=== PATIENT | female | born 1945 | race African-American/Black ===

== ENCOUNTER 2017-10-28 08:00 | Outpatient (CLI) | payer MEDICARE, OTHER ==
[2017-10-28 19:36] LABS: BASOPHILS % (AUTO) 0.8 %; EOSINOPHILS % (AUTO) 0.6 %; HGB - HEMOGLOBIN 12.8 g/dL (12.0-16.0); LYMPHOCYTES # (AUTO) 1.2 10^3/uL (1.5-3.5); LYMPHOCYTES % (AUTO) 26.9 %; MEAN CORPUSCULAR HEMOGLOBIN 29.2 pg (27.0-31.0); MEAN CORPUSCULAR HGB CONC 32.5 g/dL (32.0-36.0); MEAN CORPUSCULAR VOLUME 89.9 fL (81.0-99.0); MONOCYTES # (AUTO) 0.4 10^3/uL (0.0-1.0); MONOCYTES % (AUTO) 8.9 %; NEUTROPHILS # (AUTO) 2.9 10^3/uL (1.5-6.6); NEUTROPHILS % (AUTO) 62.8 %; PLT - PLATELET COUNT 156 10^3/uL (130-450); RED BLOOD COUNT 4.38 10^6/uL (4.20-5.40); WHITE BLOOD COUNT 4.6 x10^3/uL (4.8-10.8)
[2017-10-28 19:38] LABS: BUN - BLOOD UREA NITROGEN 19 mg/dL (6-20); CALCIUM 9.3 mg/dL (8.5-10.3); CARBON DIOXIDE - CO2 27 mmol/L (21-32); CHLORIDE 103 mmol/L (101-111); CREATININE 0.9 mg/dL (0.4-1.0); GFR - MDRD 75 (>89); GLUCOSE 87 mg/dL (70-100); SODIUM 137 mmol/L (135-145)
== END 2017-10-28 08:01 | disposition home or self-care (01) ==
LOC: LAB.WCP 08:00
PROVIDERS: ATTEND Physician Assistant Medical
DX: R42 Dizziness and giddiness (principal)
CPT/HCPCS: 36415; 80048; 84443; 85025

== ENCOUNTER 2017-11-21 13:29 | Emergency (ER) | payer MEDICARE ==
--- NOTE | 2017-11-21 14:06 | ED Physician Documentation ---
PD HPI HEAD INJURY - Stated complaint Stated Complaint: BUMP ON HEAD - Chief complaint Chief Complaint: Neuro - History obtained from History obtained from: Patient, Family - History of Present Illness Mechanism of head injury: Other (unknown) Pain level max: 0 Pain level now: 0 - Additional information Additional information: [facility] and noted to have a hematoma to the forehead at shift change. family states more altered than usual today. Review of Systems Unable to obtain: Dementia GI: denies: Vomiting PD PAST MEDICAL HISTORY - Past Medical History Cardiovascular: Hypertension, High cholesterol Neuro: Dementia GI: Other Psych: Anxiety Musculoskeletal: Gout - Past Surgical History Past Surgical History: No - Present Medications Home Medications: Ambulatory Orders Medication Instructions Recorded Confirmed hydroCHLOROthiazide [Hydrodiuril] 12.5 mg PO DAILY 08/07/16 08/07/16 - Allergies Allergies/Adverse Reactions: Allergies Allergy/AdvReac Type Severity Reaction Status Date / Time Sulfa (Sulfonamide Allergy Unknown Verified 08/07/16 06:54 Antibiotics) - Social History Does the pt smoke?: No Smoking Status: Never smoker Does the pt drink ETOH?: No Does the pt have substance abuse?: No - Immunizations Immunizations are current?: Yes - POLST Patient has POLST: No PD ED PE NORMAL - Vitals Vital signs reviewed: Yes - General General: Other (alert) - HEENT HEENT: PERRL, Moist mucous membranes, Other (small hematoma to L forehead. no palpable skull fracture) - Neck Neck: Supple, no meningeal sign, No bony TTP - Cardiac Cardiac: RRR, Strong equal pulses - Respiratory Respiratory: No respiratory distress, Clear bilaterally - Abdomen Abdomen: Soft, Non tender, Non distended - Back Back: No spinal TTP - Derm Derm: Warm and dry, No rash - Extremities Extremities: No deformity, No tenderness to palpate - Neuro Neuro: Other (alert) Eye Opening: Spontaneous Motor: Obeys Commands Verbal: Confused GCS Score: 14 Results - Vitals Vitals: Vital Signs - 24 hr 11/21/17 13:33 Temperature 36.7 C Heart Rate 70 Respiratory 18 Rate Blood Pressure 148/87 H O2 Saturation 100 Oxygen O2 Source Room air - Labs Labs: Laboratory Tests 11/21/17 11/21/17 11/21/17 14:15 14:15 15:03 WBC 3.1 L RBC 4.58 Hgb 13.4 Hct 41.4 MCV 90.3 MCH 29.3 MCHC 32.5 RDW 14.1 Plt Count 163 MPV 8.3 Neut # 1.6 Lymph # 1.2 L [place] # 0.2 Eos # 0.0 Baso # 0.0 Absolute Nucleated RBC 0.00 Nucleated RBC % 0.1 Sodium 138 Potassium 4.0 Chloride 99 L Carbon Dioxide 27 Anion Gap 12.0 BUN 16 Creatinine 0.9 Estimated GFR (MDRD) 75 L Glucose 91 Calcium 9.8 Total Bilirubin 0.5 AST 27 ALT 30 Alkaline Phosphatase 76 Total Protein 7.0 Albumin 4.0 Globulin 3.0 Albumin/Globulin Ratio 1.3 Lipase 22 Urine Color YELLOW Urine Clarity CLEAR Urine pH 6.0 Ur Specific [place] 1.010 Urine Protein NEGATIVE Urine Glucose (UA) NEGATIVE Urine Ketones NEGATIVE Urine Occult Blood SMALL H Urine Nitrite NEGATIVE Urine Bilirubin NEGATIVE Urine Urobilinogen 0.2 (NORMAL) Ur Leukocyte Esterase NEGATIVE Urine RBC 0-5 Urine WBC 0-3 Ur Squamous Epith Cells FEW Squamous Urine Bacteria Rare Ur Microscopic Review INDICATED Urine Culture Comments NOT INDICATED - Rads (name of study) head CT Radiology: Prelim report reviewed, EMP read contemporaneously, See rad report ( No acute intracranial abnormality) PD MEDICAL DECISION MAKING - ED course Complexity details: reviewed results, re-evaluated patient, considered differential, d/w patient, d/w family ED course: Patient is a 72-year-old female with Alzheimer's dementia who was found to have a hematoma on the forehead today. Unclear etiology. She does not recall what happened. No acute findings on head CT. No acute findings on laboratory testing or urinalysis. We will have her follow-up with her doctor for further evaluation and care. Normal neurological examination here. She was recently placed on meclizine for vertigo, will change this to [id number] rather than as needed as she cannot ask for the medications. We will see if this helps her. Patient and family counseled regarding signs and symptoms for which I believe and urgent re-evaluation would be necessary. Family with good understanding of and agreement to plan and is comfortable going home at this time This document was made in part using voice recognition software. While efforts are made to proofread this document, sound alike and grammatical errors may occur. Departure - Departure Disposition: 01 Home, Self Care Clinical Impression: Traumatic hematoma of forehead Qualifiers: Encounter type: initial encounter Qualified Code(s): S00.83XA - Contusion of other part of head, initial encounter Condition: Good Instructions: ED Hematoma Follow-Up: Carrie Anderson PA-C [Primary Care Provider] - Within 3 Days Comments: Please change her meclizine to 25 mg by mouth every 8 hours for [address] and laboratory testing is normal today. Return if she worsens.
[2017-11-21 14:24] LABS: BASOPHILS % (AUTO) 0.8 %; EOSINOPHILS % (AUTO) 0.3 %; HGB - HEMOGLOBIN 13.4 g/dL (12.0-16.0); LYMPHOCYTES # (AUTO) 1.2 10^3/uL (1.5-3.5); LYMPHOCYTES % (AUTO) 39.3 %; MEAN CORPUSCULAR HEMOGLOBIN 29.3 pg (27.0-31.0); MEAN CORPUSCULAR HGB CONC 32.5 g/dL (32.0-36.0); MEAN CORPUSCULAR VOLUME 90.3 fL (81.0-99.0); MEAN PLATELET VOLUME 8.3 fL (7.9-10.8); MONOCYTES # (AUTO) 0.2 10^3/uL (0.0-1.0); MONOCYTES % (AUTO) 7.4 %; NEUTROPHILS # (AUTO) 1.6 10^3/uL (1.5-6.6); NEUTROPHILS % (AUTO) 52.2 %; PLT - PLATELET COUNT 163 10^3/uL (130-450); RED BLOOD COUNT 4.58 10^6/uL (4.20-5.40); RED CELL DISTRIBUTION WIDTH 14.1 % (12.0-15.0); WHITE BLOOD COUNT 3.1 x10^3/uL (4.8-10.8)
--- NOTE | 2017-11-21 14:30 | CT Report ---
EXAM: CT HEAD EXAM DATE: 11/21/2017 02:08 PM. CLINICAL HISTORY: Head injury post fall. COMPARISON: None. TECHNIQUE: Multiaxial CT images were obtained from the foramen magnum to the vertex. Reformats: Coron al. IV contrast: None. In accordance with CT protocol optimization, one or more of the following dose reduction techniques w ere utilized for this exam: automated exposure control, adjustment of mA and/or KV based on patient s ize, or use of iterative reconstructive technique. FINDINGS: Parenchyma: No intraparenchymal hemorrhage. No evidence of mass, midline shift, or CT findings of inf arction. Yang-white differentiation is distinct. Mild periventricular hypoattenuation seen. Extraaxial Spaces: Mild atrophy present. No subdural or epidural collections identified. Ventricles: Normal in size and position. Sinuses and Orbits: Fluid is seen in the left sphenoid sinus. Remaining sinuses and mastoid air cells are unremarkable. Bones: No evidence of fracture or calvarial defect. Other: There is a left frontal scalp hematoma. IMPRESSION: 1. Mild senescent changes without CT evidence of acute intracranial disease. 2. Left sphenoid sinusitis. 3. Left frontal scalp hematoma. [facility] Referring Provider Line: [phone] SITE ID: [id number]
[2017-11-21 14:37] LABS: ALBUMIN/GLOBULIN RATIO 1.3 (1.0-2.2); BILIRUBIN,TOTAL 0.5 mg/dL (0.2-1.0); CALCIUM 9.8 mg/dL (8.5-10.3); CREATININE 0.9 mg/dL (0.4-1.0)
[2017-11-21 15:17] LABS: BILIRUBIN,URINE NEGATIVE (NEGATIVE); GLUCOSE, URINE (UA) NEGATIVE (NEGATIVE); KETONES,URINE (UA) NEGATIVE (NEGATIVE); LEUKOCYTE ESTERASE, URINE NEGATIVE (NEGATIVE); NITRITE,URINE NEGATIVE (NEGATIVE); OCCULT BLOOD,URINE SMALL (NEGATIVE); PROTEIN,URINE NEGATIVE (NEGATIVE); UROBILINOGEN,URINE 0.2 (NORMAL) E.U./dL (NORMAL)
[2017-11-21 15:35] LABS: CLARITY,URINE CLEAR (CLEAR)
[2017-11-21 16:08] LABS: BACTERIA,URINE Rare /HPF (None Seen); RBC,URINE 0-5 /HPF (0-5); SQUAMOUS EPITHELIAL CELL,UR FEW Squamous (<= Few)
[2017-11-21 16:28] VITALS: BP 143/96
== END 2017-11-21 16:34 | disposition home or self-care (01) ==
LOC: ED 13:29
DX: S00.83XA Contusion of other part of head, initial encounter (principal); X58.XXXA Exposure to other specified factors, initial encounter; G30.9 Alzheimer's disease, unspecified; F02.80 Dementia in other diseases classified elsewhere, unspecified severity, without behavioral disturbance, psychotic disturbance, mood disturbance, and anxiety; I10 Essential (primary) hypertension; E78.00 Pure hypercholesterolemia, unspecified
CPT/HCPCS: 36415; 51701; 70450; 80053; 81001; 81003; 83690; 85025; 87086; 99284

== ENCOUNTER 2018-06-26 15:53 | Emergency (ER) | payer MEDICARE, MEDICAID ==
--- NOTE | 2018-06-26 16:43 | ED Physician Documentation ---
PD HPI ABD PAIN - Stated complaint Stated Complaint: ABD PX - Chief complaint Chief Complaint: Abd Pain - History obtained from History obtained from: Patient, Family - History of Present Illness Timing - onset: Today Timing - duration: Seconds Timing - details: Abrupt onset, Now resolved Quality: Cramping, Sharp, Pain Location: All over / everywhere Improved by: Laying still Associated symptoms: Constipation. No: Fever, Nausea, Vomiting, Hematemesis, Diarrhea Similar symptoms before: Has not had sx before Recently seen: Not recently seen - Additional information Additional information: 72-year-old female with advanced dementia and prior history of constipation has had episodic abdominal pain today noticed by her daughter at a visit. The daughter is able to describe the patient's face being scrunched up and pain and appearing to be in pain for about 30 seconds on 2 separate episodes today. The pain appeared to be significant and the patient is brought to the hospital for evaluation. The daughter states that she is on a bowel program usually gets some milk of magnesia. The daughter is uncertain when she had her last dose of this or whether she had adequate bowel movement but she has been told that she had bowel movement today. The patient is unable to give any specific history herself. Review of Systems Unable to obtain: Dementia Constitutional: denies: Fever Nose: denies: Congestion Respiratory: denies: Dyspnea, Cough, Wheezing GI: denies: Vomiting, Diarrhea Skin: denies: Rash Musculoskeletal: denies: Neck pain, Back pain, Extremity pain PD PAST MEDICAL HISTORY - Past Medical History Cardiovascular: Hypertension GI: Other Psych: Anxiety Musculoskeletal: Gout - Past Surgical History Past Surgical History: No - Present Medications Home Medications: Ambulatory Orders Medication Instructions Recorded Confirmed hydroCHLOROthiazide [Hydrodiuril] 12.5 mg PO DAILY 08/07/16 08/07/16 - Allergies Allergies/Adverse Reactions: Allergies Allergy/AdvReac Type Severity Reaction Status Date / Time Sulfa (Sulfonamide Allergy Unknown Verified 06/26/18 16:02 Antibiotics) - Social History Does the pt smoke?: No Smoking Status: Never smoker Does the pt drink ETOH?: No Does the pt have substance abuse?: No - Immunizations Immunizations are current?: Yes - POLST Patient has POLST: No PD ED PE NORMAL - Vitals Vital signs reviewed: Yes (hypertensive ) - General General: No acute distress, Well developed/nourished - HEENT HEENT: Atraumatic, PERRL, EOMI - Neck Neck: Supple, no meningeal sign - Cardiac Cardiac: RRR, No murmur - Respiratory Respiratory: No respiratory distress, Clear bilaterally - Abdomen Abdomen: Soft, Other (The abdomen is firm and non-tender) - Back Back: No CVA TTP, No spinal TTP - Derm Derm: Normal color, Warm and dry, No rash - Extremities Extremities: No deformity, No edema - Neuro Neuro: Alert and oriented X 3, spiral tube winder 2-12 intact, No motor deficit, No sensory deficit, Normal speech Eye Opening: Spontaneous Motor: Obeys Commands Verbal: Oriented GCS Score: 15 - Psych Psych: Normal mood, Normal affect Results - Vitals Vitals: Vital Signs - 24 hr 06/26/18 06/26/18 15:58 18:04 Temperature 36.6 C Heart Rate 93 70 Respiratory 16 12 Rate Blood Pressure 147/83 H 134/87 H O2 Saturation 99 100 Oxygen O2 Source Room air - Rads (name of study) 1 view abdomen Radiology: Prelim report reviewed (Impression: Moderate stool in the colon.), EMP read indepedently, See rad report PD MEDICAL DECISION MAKING - ED course Complexity details: reviewed results, re-evaluated patient, considered differential, d/w patient, d/w family ED course: 72-year-old female with advanced dementia and a history of constipation has had intermittent episodes of severe abdominal pain which lasted about 30 seconds. Her history is consistent with constipation being the reason for her pain. On my examination she does appear full and is nontender. X-ray examination of the abdomen demonstrates significant stool load. She is diagnosed with constipation. She does have a bowel program that she follows [facility] and I have asked them to give her an additional dose of milk of magnesia today. - Sepsis Event Vital Signs: Vital Signs - 24 hr 06/26/18 06/26/18 15:58 18:04 Temperature 36.6 C Heart Rate 93 70 Respiratory 16 12 Rate Blood Pressure 147/83 H 134/87 H O2 Saturation 99 100 Oxygen O2 Source Room air Departure - Departure Disposition: 01 Home, Self Care Clinical Impression: Constipation Qualifiers: Constipation type: unspecified constipation type Qualified Code(s): K59.00 - Constipation, unspecified Instructions: ED Constipation Follow-Up: Carrie Anderson PA-C [Primary Care Provider] - Comments: Today it appears these intense short episodes of pain that you are having are related to constipation. When you return home take a dose of milk of magnesia. If you do not have results within 6 hours take a second dose. Discharge Date/Time: 06/26/18 18:04
[2018-06-26 18:04] VITALS: BP 134/87
--- NOTE | 2018-06-26 18:04 | XRAY Report ---
Reason: intermittant pain fullness Procedure Date: 06/26/2018 Accession Number: [id number] / [id number] Procedure: XR - Abdomen 1 View X-Ray CPT Code: 95999 FULL RESULT: EXAM: ABDOMEN RADIOGRAPHY EXAM DATE: 06/26/2018 05:47 PM. CLINICAL HISTORY: Intermittent pain fullness. COMPARISON: None. TECHNIQUE: 1 view. FINDINGS: Bowel Gas Pattern: Nonobstructed bowel gas pattern. Moderate stool in the colon. Other: Diffuse osteopenia. IMPRESSION: Moderate stool in the colon. [facility]
== END 2018-06-26 18:04 | disposition home or self-care (01) ==
LOC: ED 15:53
DX: K59.00 Constipation, unspecified (principal); I10 Essential (primary) hypertension; F03.90 Unspecified dementia, unspecified severity, without behavioral disturbance, psychotic disturbance, mood disturbance, and anxiety
CPT/HCPCS: 74018; 99282; 99283

== ENCOUNTER 2018-12-21 12:00 | Outpatient (CLI) | payer MEDICARE, MEDICAID | END 2018-12-21 12:01 | disposition critical access hospital (66) | LOC: EMS 12:00 | PROVIDERS: ATTEND Surgery | DX: M25.551 Pain in right hip (principal); W19.XXXA Unspecified fall, initial encounter | CPT/HCPCS: A0425; A0429 ==

== ENCOUNTER 2018-12-21 12:18 | Inpatient (IN) | payer MEDICARE, MEDICAID ==
--- NOTE | 2018-12-21 13:07 | ED Physician Documentation ---
PD HPI LOWER EXT INJURY - Stated complaint Stated Complaint: GLF - Chief complaint Chief Complaint: Ext Problem - History obtained from History obtained from: Patient - History of Present Illness PD HPI LOW EXT INJURY LOCATION: Right, Hip, Other (lower back) Type of injury: Fall (She was walking and tripped on another resident's foot and fell forward into the side.) Where injury occurred: Other ([facility]) Timing - onset: Today Timing - duration: Days Timing - details: Abrupt onset, Still present Worsened by: Moving, Other (standing/weight bearing) Associated symptoms: No: Weakness, Numbness Contributing factors: No: Anticoagulated Similar symptoms before: Has not had sx before Recently seen: Not recently seen Review of Systems Unable to obtain: Dementia, Other (info from family) Constitutional: denies: Fever Respiratory: denies: Cough Neurologic: reports: Other (dementia). denies: Focal weakness, Headache PD PAST MEDICAL HISTORY - Past Medical History Cardiovascular: Hypertension Respiratory: None Neuro: Dementia Endocrine/Autoimmune: None GI: Other Psych: Anxiety Musculoskeletal: Gout - Past Surgical History Past Surgical History: No - Present Medications Home Medications: Ambulatory Orders Medication Instructions Recorded Confirmed hydroCHLOROthiazide [Hydrodiuril] 12.5 mg PO DAILY 08/07/16 12/21/18 Acetaminophen [Tylenol] 650 mg PO PRN PRN 12/21/18 12/21/18 Aspirin [Aspirin EC] 81 mg PO DAILY 12/21/18 12/21/18 Atorvastatin Calcium 40 mg PO DAILY 12/21/18 12/21/18 Escitalopram [Lexapro] 20 mg PO DAILY 12/21/18 12/21/18 Latanoprost/Pf [Latanoprost 0.005% 1 drops EACHEYE QPM 12/21/18 12/21/18 Eye Drop] Melatonin/Pyridoxine [Melatonin 5 5 mg PO DAILY 12/21/18 12/21/18 mg Tablet] Polyethylene Glycol 1450 8.5 gm PO DAILY 12/21/18 12/21/18 QUEtiapine [SEROquel] 25 mg PO QPM 12/21/18 12/21/18 - Allergies Allergies/Adverse Reactions: Allergies Allergy/AdvReac Type Severity Reaction Status Date / Time Sulfa (Sulfonamide Allergy Unknown Verified 06/26/18 16:02 Antibiotics) - Living Situation Living Situation: reports: Other Living Arrangement: reports: long-term (Her daughter says the patient is ambulatory though not very strong and does not get up a lot but does get up for meals and to the bathroom etc.) - Social History Does the pt smoke?: No Smoking Status: Never smoker Does the pt drink ETOH?: No Does the pt have substance abuse?: No - Family History Family history: reports: Non contributory - Immunizations Immunizations are current?: Yes - POLST Patient has POLST: No PD ED PE NORMAL - Vitals Vital signs reviewed: Yes - General General: Well developed/nourished. No: Alert and oriented X 3 (alert and conversant but very poor memory. ) - HEENT HEENT: Atraumatic - Neck Neck: Supple, no meningeal sign, No bony TTP, No adenopathy - Cardiac Cardiac: RRR, No murmur - Respiratory Respiratory: Clear bilaterally, Other (no chestwall tenderness) - Abdomen Abdomen: Soft, Non tender - Back Back: Other (mild tenderness lower lumbar area without obvious deformity. ) - Derm Derm: Normal color, Warm and dry - Extremities Extremities: No tenderness to palpate, Other (Seems to guard ROM of the right hip. Pain with impaction and rotational attempts. ) - Neuro Neuro: No motor deficit. No: Normal speech (minimal response to questions but i s able to answer. ) Results - Vitals Vitals: Vital Signs - 24 hr 12/21/18 12:25 Temperature 36.6 C Heart Rate 66 Respiratory 18 Rate Blood Pressure 146/92 H O2 Saturation 99 Oxygen O2 Source Room air - Labs Labs: Laboratory Tests 12/21/18 12/21/18 12/21/18 15:37 15:37 15:37 WBC 6.7 RBC 4.41 Hgb 13.0 Hct 39.2 MCV 88.8 MCH 29.5 MCHC 33.2 RDW 14.5 Plt Count 161 MPV 8.7 Neut # (Auto) 4.5 Lymph # (Auto) 1.7 [place] # (Auto) 0.4 Eos # (Auto) 0.1 Baso # (Auto) 0.0 Absolute Nucleated RBC 0.00 Nucleated RBC % 0.0 PT 12.7 H INR 1.1 APTT 29.4 Sodium 135 Potassium 3.7 Chloride 101 Carbon Dioxide 25 Anion Gap 9.0 BUN 14 Creatinine 0.7 Estimated GFR (MDRD) 99 Glucose 94 Calcium 9.1 Total Bilirubin 0.7 AST 26 ALT 29 Alkaline Phosphatase 52 Total Protein 6.7 Albumin 3.6 Globulin 3.1 Albumin/Globulin Ratio 1.2 Lipase 26 - Rads (name of study) lumbar CT Radiology: Prelim report reviewed (no fractures. ) pelvic CT Radiology: Prelim report reviewed (right nondisplaced femoral neck fracture. ), See rad report PD MEDICAL DECISION MAKING - ED course Complexity details: reviewed results (There is a nondisplaced femoral neck fracture on the right. No fractures of the lumbar or pelvis.), considered differential (She does have guarding of range of motion of the right hip. She is also tender somewhat in the lateral aspect of the hip and the low back. Given her dementia and poor verbalization, tired to tell for sure on location of injury. I did a CT of the lumbar and pelvis to look for associated injuries and this will also incorporate the hip.), d/w patient, d/w family, d/w business development consultant (Dr. Aguilar, who will likely do surgery tomorrow morning, since the patient had eaten today (last ate breakfast 8 am per daughter, so 8 hours ago). ) Departure - Departure Disposition: 66 [facility] DC/Xfer Clinical Impression: Fall from slip, trip, or stumble Qualifiers: Encounter type: initial encounter Qualified Code(s): W01.0XXA - Fall on same level from slipping, tripping and stumbling without subsequent striking against object, initial encounter Femoral neck fracture Qualifiers: Encounter type: initial encounter Fracture type: closed Laterality: right Qualified Code(s): S72.001A - Fracture of unspecified part of neck of right femur, initial encounter for closed fracture Condition: Stable Record reviewed to determine appropriate education?: Yes
[2018-12-21] MEDS ORDERED: ACETAMINOPHEN 325 MG TABLET PO STA (13:27)
--- NOTE | 2018-12-21 14:21 | CT Report ---
Reason: fall with pain low back and right hip/pelvis Procedure Date: 12/21/2018 Accession Number: [id number] / [id number] Procedure: CT - PELVIS WO CPT Code: FULL RESULT: EXAM: CT BONY PELVIS WITHOUT CONTRAST EXAM DATE: 12/21/2018 01:51 PM. CLINICAL HISTORY: Fall with pain low back and right hip/pelvis. COMPARISON: None. TECHNIQUE: Thin-section axial images were acquired of the pelvis without contrast. Post-processing: Coronal and sagittal reformats. Other: None. In accordance with CT protocol optimization, one or more of the following dose reduction techniques were utilized for this exam: automated exposure control, adjustment of mA and/or KV based on patient size, or use of iterative reconstructive technique. FINDINGS: Bones: Osteopenia. Mildly impacted minimally displaced fracture extends transversely through the subcapital region right femoral neck. Mild impaction laterally. Old healed fracture posterior wall right acetabulum. Lower lumbar spine: Moderate to severe degenerative disk and facet changes partially visualized. Please see dedicated CT lumbar spine performed on the same day. Sacroiliac Joints: Mild degenerative changes bilaterally. Symphysis Pubis: Mild degenerative changes. 0.7 cm offset at the superior articular margins, likely due to old trauma. Right Hip: Moderate degenerative changes. Moderate joint effusion with fat fluid level. Two 3 mm ovoid densities project in the posterior aspect of the joint. Left Hip: Mild degenerative changes. Possible small joint effusion. Musculature: Mild fatty atrophy throughout the musculature, most prominent in the posterior paraspinous and gluteal muscles. Limited evaluation of edema on CT. Possible mild edema in the musculature adjacent to the right hip. Pelvic Cavity: The visualized bowel, bladder, and reproductive organs are unremarkable on this noncontrast exam. Other: No lymphadenopathy. No free air or free fluid. The other visualized soft tissues are unremarkable. IMPRESSION: 1. Nondisplaced mildly impacted fracture right femoral neck. 2. Moderate right hip lipohemarthrosis. 3. Old healed fracture right posterior acetabulum. 4. Degenerative changes lower lumbar spine and bony pelvis, moderate at the right hip. [facility]
--- NOTE | 2018-12-21 14:53 | CT Report ---
Reason: fall with pain low back and right hip Procedure Date: 12/21/2018 Accession Number: [id number] / [id number] Procedure: CT - LUMBAR SPINE WO CPT Code: FULL RESULT: CT LUMBAR SPINE WITHOUT CONTRAST INDICATION: 73-year-old female. Fall with pain in the low back and right hip. TECHNIQUE: Reconstruction and 2 mm axial images. In addition, 2 mm sagittal and coronal re-formations have been generated. In accordance with CT protocol optimization, one or more of the following dose reduction techniques were utilized for this exam: automated exposure control, adjustment of mA and/or KV based on patient size, or use of iterative reconstructive technique. COMPARISON: Bone window images from previous abdomen/pelvis CT 07/22/2016. FINDINGS: There is image degradation from patient motion, most prominent on imaging through the lower thoracic/upper lumbar spine. This artifact decreases the diagnostic quality of this examination. There are 5 [id number], lumbar type vertebrae. There is mild to moderate anterior wedging of the L3 vertebral body that is new when compared to the previous study 07/22/2016. The imaging findings are consistent with the sequela of prior, 2 column, superior endplate compression fracture. The deformity appears to relate to an old healed fracture. No lucent fracture line is identified and there is no obvious paraspinal hematoma. There is minor, healed, posterior displacement of the posterior cortex of the upper L3 vertebral body, projecting into the spinal canal for roughly 3 mm. No significant associated spinal stenosis. The vertebral body heights are otherwise preserved. The pedicles and posterior elements appear intact at all levels. Again demonstrated are small sclerotic foci in the inferior endplates of L1, L2 and L3, stable. No lytic or destructive bone lesion is identified. There is a minimal, dextroconvex curvature with apex at about L3. Alignment in the sagittal plane is unremarkable. There is evidence of fairly advanced degenerative disk disease at L4-L5 with moderate to severe disk space narrowing and reactive sclerosis in the vertebral endplates. The lumbar disk space heights are otherwise relatively preserved. Axial images: T10-T11 through L1-L2: No obvious disk herniation is demonstrated. No significant spinal stenosis or foraminal stenosis is identified. L2-L3: Circumferential disk bulge. Broad-based intraforaminal/extraforaminal extrusions bilaterally. Suspect mild degenerative facet arthrosis. No significant bony hypertrophy. There is moderate redundancy of the ligamenta flava. Circumferential thecal sac compression with at least mild generalized (central and subarticular zone) spinal stenosis. Mild foraminal stenoses. L3-L4: Broad-based intraforaminal/extraforaminal protrusions or extrusions bilaterally. Mild degenerative facet arthrosis. No significant bony hypertrophy. Moderate redundancy of the ligamenta flava. There is at least mild generalized spinal stenosis. Mild to moderate foraminal stenoses. L4-L5: No obvious posterior disk herniation is demonstrated. There are broad-based intraforaminal/extraforaminal extrusions bilaterally. Degenerative facet arthrosis with minimal bony hypertrophy. Moderate redundancy of the ligamenta flava. There appears to be mild to moderate central zone spinal stenosis. The subarticular zones are narrowed, right greater than left. There is mild to moderate left and moderate right foraminal stenosis. L5-S1: No obvious posterior disk herniation. Minor intraforaminal protrusions bilaterally. Degenerative facet arthrosis with mild left and moderate to marked right facet hypertrophy. Mild to moderate redundancy of the ligamenta flava. No spinal stenosis. Minimal foraminal narrowing. Degenerative changes are demonstrated in the sacroiliac joints bilaterally. Again demonstrated are multiple hypodense lesions in the liver, presumed hepatic cysts. Linear opacities are demonstrated in the lower lobes of both lungs, likely representing scarring or nonsegmental atelectasis. Regional paraspinous soft tissues are otherwise unremarkable. IMPRESSION: 1. There is mild to moderate anterior wedging of the L3 vertebral body, consistent with the sequela of prior, 2 column superior endplate compression fracture. This appears to represent an old healed fracture. No lucent fracture line is visible and no obvious paraspinal hematoma is demonstrated. 2. The vertebral body heights are otherwise maintained. The pedicles and posterior elements appear intact. 3. There is multilevel degenerative disk and facet change as documented in detail above. Evaluation for spinal stenosis is limited on this study performed without intrathecal contrast. There probably is mild to moderate spinal stenosis at L4-L5. No high-grade stenosis is identified at any level in the lumbar spine.
[2018-12-21 15:50] LABS: BASOPHILS % (AUTO) 0.5 %; EOSINOPHILS # (AUTO) 0.1 10^3/uL (0.0-0.7); EOSINOPHILS % (AUTO) 0.7 %; LYMPHOCYTES # (AUTO) 1.7 10^3/uL (1.5-3.5); MEAN CORPUSCULAR HEMOGLOBIN 29.5 pg (27.0-31.0); MEAN CORPUSCULAR HGB CONC 33.2 g/dL (32.0-36.0); MEAN CORPUSCULAR VOLUME 88.8 fL (81.0-99.0); MEAN PLATELET VOLUME 8.7 fL (7.9-10.8); MONOCYTES # (AUTO) 0.4 10^3/uL (0.0-1.0); MONOCYTES % (AUTO) 6.1 %; NEUTROPHILS # (AUTO) 4.5 10^3/uL (1.5-6.6); NEUTROPHILS % (AUTO) 67.7 %; PLT - PLATELET COUNT 161 10^3/uL (130-450); RED BLOOD COUNT 4.41 10^6/uL (4.20-5.40); RED CELL DISTRIBUTION WIDTH 14.5 % (12.0-15.0); WHITE BLOOD COUNT 6.7 x10^3/uL (4.8-10.8)
[2018-12-21 15:55] LABS: ALBUMIN 3.6 g/dL (3.2-5.5); ALBUMIN/GLOBULIN RATIO 1.2 (1.0-2.2); BILIRUBIN,TOTAL 0.7 mg/dL (0.2-1.0); CALCIUM 9.1 mg/dL (8.5-10.3); CREATININE 0.7 mg/dL (0.4-1.0); TOTAL PROTEIN 6.7 g/dL (6.7-8.2)
[2018-12-21 15:56] LABS: INR 1.1 (0.8-1.2); PT - PROTHROMBIN TIME 12.7 secs (9.9-12.6)
[2018-12-21 16:03] LABS: PARTIAL THROMBOPLASTIN TIME 29.4 secs (24.9-33.3)
[2018-12-21] MEDS ORDERED: ONDANSETRON 4 MG/2 ML VIAL IVP PRN (16:32)
[2018-12-21] MEDS ORDERED: SODIUM CHLORIDE FLUSH 0.9% 10 ML SYRINGE IVP PRN (16:32)
[2018-12-21] MEDS ORDERED: oxyCODONE 5 MG TABLET PO PRN (16:32)
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
[2018-12-21] MEDS: SODIUM CHLORIDE FLUSH 0.9% 10 ML SYRINGE IVP SCH (18:07)
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
[2018-12-21] MEDS: MORPHINE 2 MG/ML CARPUJECT IVP PRN (18:21)
[2018-12-21] MEDS: MELATONIN 5 MG PO SCH (19:44)
[2018-12-21] MEDS: FAMOTIDINE 20 MG TABLET PO SCH (20:58)
[2018-12-21] MEDS: LATANOPROST 0.005% OPHTH DROPS EACHEYE SCH (20:58)
[2018-12-21] MEDS: QUEtiapine 25 MG TABLET PO SCH (20:58)
[2018-12-22] MEDS ORDERED: SODIUM CHLORIDE 0.9% 1,000 ML IV SCH (01:00)
[2018-12-22] MEDS: SODIUM CHLORIDE FLUSH 0.9% 10 ML SYRINGE IVP SCH ×4 (01:39→16:39)
[2018-12-22 05:05] LABS: EOSINOPHILS # (AUTO) 0.1 10^3/uL (0.0-0.7); EOSINOPHILS % (AUTO) 1.4 %; HGB - HEMOGLOBIN 11.6 g/dL (12.0-16.0); LYMPHOCYTES # (AUTO) 1.4 10^3/uL (1.5-3.5); LYMPHOCYTES % (AUTO) 38.9 %; MEAN CORPUSCULAR HEMOGLOBIN 29.4 pg (27.0-31.0); MEAN CORPUSCULAR HGB CONC 32.8 g/dL (32.0-36.0); MEAN CORPUSCULAR VOLUME 89.7 fL (81.0-99.0); MEAN PLATELET VOLUME 8.5 fL (7.9-10.8); MONOCYTES # (AUTO) 0.3 10^3/uL (0.0-1.0); MONOCYTES % (AUTO) 9.4 %; NEUTROPHILS # (AUTO) 1.8 10^3/uL (1.5-6.6); NEUTROPHILS % (AUTO) 49.3 %; PLT - PLATELET COUNT 146 10^3/uL (130-450); RED BLOOD COUNT 3.96 10^6/uL (4.20-5.40); RED CELL DISTRIBUTION WIDTH 14.3 % (12.0-15.0); WHITE BLOOD COUNT 3.6 x10^3/uL (4.8-10.8)
[2018-12-22 05:07] LABS: CALCIUM 8.8 mg/dL (8.5-10.3); CREATININE 0.9 mg/dL (0.4-1.0)
[2018-12-22 05:17] LABS: CHOL/HDL RATIO 1.6 (<4.4); CHOLESTEROL 147 mg/dL; HDL CHOLESTEROL 90 mg/dL
[2018-12-22 05:37] LABS: LDL CHOLESTEROL,DIRECT 48 mg/dL; LDLD/HDL RATIO 0.5 (<4.4)
[2018-12-22] MEDS ORDERED: D5.45NS W/20 MEQ KCL 1,000 ML IV SCH (07:00)
[2018-12-22] MEDS ORDERED: cefTRIAXone 1 GM VIAL IVP SCH (09:00)
[2018-12-22] MEDS: MORPHINE 2 MG/ML CARPUJECT IVP PRN (09:06)
[2018-12-22] MEDS: D5.45NS W/20 MEQ KCL 1,000 ML IV SCH ×2 (09:10→16:55)
[2018-12-22] MEDS: hydroCHLOROthiazide 12.5 MG CAPSULE PO SCH (09:14)
[2018-12-22] MEDS: ASPIRIN EC 81 MG TABLET PO SCH (09:14)
[2018-12-22] MEDS: ESCITALOPRAM 10 MG TABLET PO SCH (09:14)
[2018-12-22] MEDS: CALCIUM CITRATE 250 MG TABLET PO SCH (09:14)
[2018-12-22] MEDS: FAMOTIDINE 20 MG TABLET PO SCH ×2 (09:14→20:08)
[2018-12-22] MEDS: ATORVASTATIN 40 MG TABLET PO SCH (09:15)
[2018-12-22] MEDS: POLYETHYLENE GLYCOL 3350 17 GM PACKET PO SCH (09:15)
[2018-12-22] MEDS: CHOLECALCIFEROL 400 UNIT TABLET PO SCH (09:15)
[2018-12-22] MEDS: cefTRIAXone 1 GM in SODIUM CHLORIDE 0.9% MINIBAG 100 ML IV SCH (09:51)
--- NOTE | 2018-12-22 10:13 | XRAY Report ---
Reason: fever, and sob Procedure Date: 12/22/2018 Accession Number: [id number] / [id number] Procedure: XR - Chest 1 View X-Ray CPT Code: 31733 FULL RESULT: EXAM: CHEST RADIOGRAPHY EXAM DATE: 12/22/2018 09:41 AM. CLINICAL HISTORY: Fever, and shortness of breath. COMPARISON: None. TECHNIQUE: 1 view. FINDINGS: Lungs/Pleura: Minor left basilar atelectasis or scarring. No consolidation or pulmonary edema. No pneumothorax or obvious pleural effusion. Mediastinum: Normal heart size and superior mediastinal contour. Other: Dextroscoliosis. No acute fracture evident. IMPRESSION: 1. No consolidative pneumonia or heart failure. 2. Minor left basilar atelectasis or scarring. 3. Anatomic distortion from scoliosis. RADIA
[2018-12-22] MEDS: ACETAMINOPHEN 325 MG TABLET PO PRN (10:45)
--- NOTE | 2018-12-22 11:20 | PROVIDER PROGRESS NOTE ---
Subjective - Prog Note Date Prog Note Date: 12/22/18 Prog Note Time: 11:19 - Subjective Pt reports feeling: No change Objective - Vital Signs/Intake & Output Vital Signs: Vital Signs x48h Temp Pulse Resp BP Pulse Ox 12/22/18 07:52 37.6 C H 94 18 133/75 H 96 Intake & Output: Intake & Output 12/19/18 12/20/18 12/21/18 12/22/18 23:59 23:59 23:59 23:59 Intake Total 245 698.333 Balance 245 698.333 - Lab Results Fish Bones: 12/22/18 04:30 12/22/18 04:30 Other Labs: Lab Results x24hrs 12/22/18 12/22/18 12/22/18 Range/Units 04:30 04:30 04:30 WBC 3.6 L (4.8-10.8) x10^3/uL RBC 3.96 L (4.20-5.40) 10^6/uL Hgb 11.6 L (12.0-16.0) g/dL Hct 35.5 L (37.0-47.0) % MCV 89.7 (81.0-99.0) fL MCH 29.4 (27.0-31.0) pg MCHC 32.8 (32.0-36.0) g/dL RDW 14.3 (12.0-15.0) % Plt Count 146 (130-450) 10^3/uL MPV 8.5 (7.9-10.8) fL Neut # (Auto) 1.8 (1.5-6.6) 10^3/uL Lymph # (Auto) 1.4 L (1.5-3.5) 10^3/uL [place] # (Auto) 0.3 (0.0-1.0) 10^3/uL Eos # (Auto) 0.1 (0.0-0.7) 10^3/uL Baso # (Auto) 0.0 (0.0-0.1) 10^3/uL Absolute Nucleated RBC 0.00 x10^3/uL Nucleated RBC % 0.1 /100WBC PT (9.9-12.6) secs INR (0.8-1.2) APTT (24.9-33.3) secs Sodium 136 (135-145) mmol/L Potassium 3.9 (3.5-5.0) mmol/L Chloride 103 (101-111) mmol/L Carbon Dioxide 25 (21-32) mmol/L Anion Gap 8.0 (6-13) BUN 17 (6-20) mg/dL Creatinine 0.9 (0.4-1.0) mg/dL Estimated GFR (MDRD) 74 L (>89) Glucose 95 (70-100) mg/dL Calcium 8.8 (8.5-10.3) mg/dL Total Bilirubin (0.2-1.0) mg/dL AST (10-42) IU/L ALT (10-60) IU/L Alkaline Phosphatase (42-121) IU/L Total Protein (6.7-8.2) g/dL Albumin (3.2-5.5) g/dL Globulin (2.1-4.2) g/dL Albumin/Globulin Ratio (1.0-2.2) Triglycerides 26 ( - 149) mg/dL Cholesterol 147 ( - 199) mg/dL LDL Cholesterol Direct 48 ( - 129) mg/dL LDL Cholesterol, Calc Not Reportable VLDL Cholesterol Not Reportable HDL Cholesterol 90 (60 - ) mg/dL LDL/HDL Ratio Not Reportable dLDL/HDL Ratio 0.5 (<4.4) Cholesterol/HDL Ratio 1.6 (<4.4) Lipase (22-51) U/L 12/21/18 12/21/18 12/21/18 Range/Units 15:37 15:37 15:37 WBC 6.7 (4.8-10.8) x10^3/uL RBC 4.41 (4.20-5.40) 10^6/uL Hgb 13.0 (12.0-16.0) g/dL Hct 39.2 (37.0-47.0) % MCV 88.8 (81.0-99.0) fL MCH 29.5 (27.0-31.0) pg MCHC 33.2 (32.0-36.0) g/dL RDW 14.5 (12.0-15.0) % Plt Count 161 (130-450) 10^3/uL MPV 8.7 (7.9-10.8) fL Neut # (Auto) 4.5 (1.5-6.6) 10^3/uL Lymph # (Auto) 1.7 (1.5-3.5) 10^3/uL [place] # (Auto) 0.4 (0.0-1.0) 10^3/uL Eos # (Auto) 0.1 (0.0-0.7) 10^3/uL Baso # (Auto) 0.0 (0.0-0.1) 10^3/uL Absolute Nucleated RBC 0.00 x10^3/uL Nucleated RBC % 0.0 /100WBC PT 12.7 H (9.9-12.6) secs INR 1.1 (0.8-1.2) APTT 29.4 (24.9-33.3) secs Sodium 135 (135-145) mmol/L Potassium 3.7 (3.5-5.0) mmol/L Chloride 101 (101-111) mmol/L Carbon Dioxide 25 (21-32) mmol/L Anion Gap 9.0 (6-13) BUN 14 (6-20) mg/dL Creatinine 0.7 (0.4-1.0) mg/dL Estimated GFR (MDRD) 99 (>89) Glucose 94 (70-100) mg/dL Calcium 9.1 (8.5-10.3) mg/dL Total Bilirubin 0.7 (0.2-1.0) mg/dL AST 26 (10-42) IU/L ALT 29 (10-60) IU/L Alkaline Phosphatase 52 (42-121) IU/L Total Protein 6.7 (6.7-8.2) g/dL Albumin 3.6 (3.2-5.5) g/dL Globulin 3.1 (2.1-4.2) g/dL Albumin/Globulin Ratio 1.2 (1.0-2.2) Triglycerides ( - 149) mg/dL Cholesterol ( - 199) mg/dL LDL Cholesterol Direct ( - 129) mg/dL LDL Cholesterol, Calc VLDL Cholesterol HDL Cholesterol (60 - ) mg/dL LDL/HDL Ratio dLDL/HDL Ratio (<4.4) Cholesterol/HDL Ratio (<4.4) Lipase 26 (22-51) U/L - Other Results/Comments Other Results/Comments: EXAM: Unchanged Sepsis Event Note (H) - Evaluation Current Stage of Sepsis: Ruled out Assessment/Plan - Problem List (1) Femoral neck fracture Impression: PLAN: To OR today for cannulated screw fixation of right hip fracture. Qualifiers: Encounter type: initial encounter Fracture type: closed Laterality: right Qualified Code(s): S72.001A - Fracture of unspecified part of neck of right femur, initial encounter for closed fracture
[2018-12-22] MEDS ORDERED: ceFAZolin 2 GM/50 ML 2 GM/50 ML BAG IV SCH (11:30)
--- NOTE | 2018-12-22 11:34 | ANESTHESIA ---
Pre-Anesthesia VS, & Labs - Diagnosis Right hip fracture - Procedure Right hip pinning Vital Signs: Temp Pulse Resp BP Pulse Ox 37.6 C H 94 18 133/75 H 96 12/22/18 07:52 12/22/18 07:52 12/22/18 07:52 12/22/18 07:52 12/22/18 07:52 Height 5 ft 9 in Weight (kg) 64 kg Body Mass Index 20.8 - NPO >8 hours - Is Patient ?: No - Lab Results Current Lab Results: Laboratory Tests 12/22/18 04:30: Triglycerides 26, Cholesterol 147, LDL Cholesterol Direct 48, LDL Cholesterol, Calc Not Reportable, VLDL Cholesterol Not Reportable, HDL Cholesterol 90, LDL/HDL Ratio Not Reportable, dLDL/HDL Ratio 0.5, Cholesterol/ HDL Ratio 1.6 12/22/18 04:30: Sodium 136, Potassium 3.9, Chloride 103, Carbon Dioxide 25, Anion Gap 8.0, BUN 17, Creatinine 0.9, Estimated GFR (MDRD) 74 L, Glucose 95, Calcium 8.8 12/22/18 04:30: WBC 3.6 L, RBC 3.96 L, Hgb 11.6 L, Hct 35.5 L, MCV 89.7, MCH 29.4, MCHC 32.8, RDW 14.3, Plt Count 146, MPV 8.5, Neut # (Auto) 1.8, Lymph # (A uto) 1.4 L, Jack # (Auto) 0.3, Eos # (Auto) 0.1, Baso # (Auto) 0.0, Absolute Nucleated RBC 0.00, Nucleated RBC % 0.1 12/21/18 15:37: Sodium 135, Potassium 3.7, Chloride 101, Carbon Dioxide 25, Anion Gap 9.0, BUN 14, Creatinine 0.7, Estimated GFR (MDRD) 99, Glucose 94, Calcium 9.1, Total Bilirubin 0.7, AST 26, ALT 29, Alkaline Phosphatase 52, Total Protein 6.7, Albumin 3.6, Globulin 3.1, Albumin/Globulin Ratio 1.2, Lipase 26 12/21/18 15:37: PT 12.7 H, INR 1.1, APTT 29.4 12/21/18 15:37: WBC 6.7, RBC 4.41, Hgb 13.0, Hct 39.2, MCV 88.8, MCH 29.5, MCHC 33.2, RDW 14.5, Plt Count 161, MPV 8.7, Neut # (Auto) 4.5, Lymph # (Auto) 1.7, Jack # (Auto) 0.4, Eos # (Auto) 0.1, Baso # (Auto) 0.0, Absolute Nucleated RBC 0 .00, Nucleated RBC % 0.0 Fish Bones: 12/22/18 04:30 12/22/18 04:30 Home Medications and Allergies Home Medications: Ambulatory Orders Acetaminophen [Tylenol] 650 mg PO PRN PRN 12/21/18 Aspirin [Aspirin EC] 81 mg PO DAILY 12/21/18 Atorvastatin Calcium 40 mg PO DAILY 12/21/18 Escitalopram [Lexapro] 20 mg PO DAILY 12/21/18 Latanoprost/Pf [Latanoprost 0.005% Eye Drop] 1 drops EACHEYE QPM 12/21/18 Melatonin/Pyridoxine [Melatonin 5 mg Tablet] 5 mg PO DAILY 12/21/18 Polyethylene Glycol 1450 8.5 gm PO DAILY 12/21/18 QUEtiapine [SEROquel] 25 mg PO QPM 12/21/18 Active Medications Acetaminophen (Tylenol) 650 mg PO Q4HR PRN PRN Reason: Pain 1 to 4 Last Admin: 12/22/18 10:45 Dose: 650 mg Aspirin (Ecotrin) 81 mg PO DAILY [facility] Last Admin: 12/22/18 09:14 Dose: 81 mg Atorvastatin Calcium (Lipitor) 40 mg PO DAILY [facility] Last Admin: 12/22/18 09:15 Dose: 40 mg Calcium Citrate () 250 mg PO DAILY [facility] Last Admin: 12/22/18 09:14 Dose: 250 mg Cholecalciferol (Vitamin D3) 800 unit PO DAILY [facility] Last Admin: 12/22/18 09:15 Dose: 800 unit Enoxaparin Sodium (Lovenox) 40 mg SUBQ DAILY [facility] Escitalopram Oxalate (Lexapro) 20 mg PO DAILY [facility] Last Admin: 12/22/18 09:14 Dose: 20 mg Famotidine (Pepcid) 20 mg PO BID [facility] Last Admin: 12/22/18 09:14 Dose: 20 mg Hydrochlorothiazide (Hydrodiuril) 12.5 mg PO DAILY [facility] Last Admin: 12/22/18 09:14 Dose: 12.5 mg Potassium Chloride/Dextrose/Sod Cl (D5.45ns W/20 Meq Kcl) 1,000 mls @ 125 mls/hr IV .Q8H [facility] Stop: 12/23/18 00:33 Last Admin: 12/22/18 09:10 Dose: 125 mls/hr Ceftriaxone Sodium 1 gm/ (Sodium Chloride) 100 mls @ 200 mls/hr IV DAILY [facility] Last Admin: 12/22/18 09:51 Dose: 200 mls/hr Cefazolin Sodium/Dextrose (Ancef 2 Gm/50 Ml) 2 gm in 50 mls @ 100 mls/hr IV ONCE [facility] Latanoprost (Xalatan Ophth Drops) 1 drops EACHEYE QPM [facility] Last Admin: 12/21/18 20:58 Dose: 1 drops Morphine Sulfate (Morphine (Carpuject)) 2 mg IVP Q2HR PRN PRN Reason: Pain 8 to 10 Last Admin: 12/22/18 09:06 Dose: 2 mg Ondansetron HCl (Zofran Inj) 4 mg IVP Q6HR PRN PRN Reason: Nausea / Vomiting Oxycodone HCl (Roxicodone) 5 mg PO Q4HR PRN PRN Reason: Pain 5 to 7 Last Admin: 12/21/18 18:06 Dose: 5 mg Patient Own Med ( Melatonin 5 Mg Tablet) 1 each PO QPM [facility] Last Admin: 12/21/18 19:44 Dose: Not Given Polyethylene Glycol (Miralax) 17 gm PO DAILY [facility] Last Admin: 12/22/18 09:15 Dose: 17 gm Quetiapine Fumarate (Seroquel) 25 mg PO QPM [facility] Last Admin: 12/21/18 20:58 Dose: 25 mg Sodium Chloride (Normal Saline Flush 0.9%) 10 ml IVP PRN PRN PRN Reason: NEEDED PER PROVIDER ORDERS Last Admin: 12/21/18 18:25 Dose: 10 ml Sodium Chloride (Normal Saline Flush 0.9%) 10 ml IVP 0100,0900,1700 [facility] Last Admin: 12/22/18 09:09 Dose: 10 ml hydroCHLOROthiazide [Hydrodiuril] 12.5 mg PO DAILY 08/07/16 Acetaminophen [Tylenol] 650 mg PO PRN PRN 12/21/18 Aspirin [Aspirin EC] 81 mg PO DAILY 12/21/18 Atorvastatin Calcium 40 mg PO DAILY 12/21/18 Escitalopram [Lexapro] 20 mg PO DAILY 12/21/18 Latanoprost/Pf [Latanoprost 0.005% Eye Drop] 1 drops EACHEYE QPM 12/21/18 Melatonin/Pyridoxine [Melatonin 5 mg Tablet] 5 mg PO DAILY 12/21/18 Polyethylene Glycol 1450 8.5 gm PO DAILY 12/21/18 QUEtiapine [SEROquel] 25 mg PO QPM 12/21/18 Allergies/Adverse Reactions: Allergies Allergy/AdvReac Type Severity Reaction Status Date / Time Sulfa (Sulfonamide Allergy Unknown Verified 06/26/18 16:02 Antibiotics) Anes History & Medical History - Anesthetic History Family history of Anesthesia Complications: Denies Family history of Malignant Hyperthermia: Denies - Medical History Cardiovascular: reports: Hypertension Pulmonary: reports: None Urinary: reports: Incontinence, Frequency Neuro: reports: Dementia (Severe, non verbal) Musculoskeletal: reports: Gout Endocrine/Autoimmune: reports: None Blood Disorders: reports: None Skin: reports: None Smoking Status: Never smoker Psychosocial: reports: No issues indicated Exam General: No acute distress Dental: WNL Thyromental Distance: greater than 6 cm Respiratory: Lungs clear, Normal breath sounds, No respiratory distress, No accessory muscle use Cardiovascular: Regular rate, Normal S1, Normal S2, No murmurs Mental/Cognitive Status: Other (non verbal) Cognitive Status: Dementia Other Exam Comments:: Mallampati deferred due to patient's inability to cooperate Plan Anesthesia Type: General Consent for Procedure(s) Verified and Reviewed: Yes Code Status: Attempt Resuscitation ASA classification: 3-Severe systemic disease Is this case an emergency?: No
[2018-12-22 11:35] LABS: BILIRUBIN,URINE NEGATIVE (NEGATIVE); GLUCOSE, URINE (UA) NEGATIVE (NEGATIVE); KETONES,URINE (UA) NEGATIVE (NEGATIVE); LEUKOCYTE ESTERASE, URINE NEGATIVE (NEGATIVE); NITRITE,URINE NEGATIVE (NEGATIVE); OCCULT BLOOD,URINE TRACE-INTA (NEGATIVE); PROTEIN,URINE NEGATIVE (NEGATIVE); UROBILINOGEN,URINE 0.2 (NORMAL) E.U./dL (NORMAL)
[2018-12-22 11:37] LABS: CLARITY,URINE CLEAR (CLEAR)
[2018-12-22] MEDS ORDERED: BUPIVACAINE 0.25% PF 10 ML VIAL ONE (12:25)
[2018-12-22] MEDS ORDERED: LACTATED RINGERS 1,000 ML IV ONE ×2 (13:24→13:25)
[2018-12-22] MEDS ORDERED: ENOXAPARIN 40 MG/0.4 ML SYRINGE SUBQ SCH (14:00)
[2018-12-22] MEDS ORDERED: BUPIVACAINE 0.25% PF 30 ML VIAL SUBQ ONE ×2 (14:05)
[2018-12-22] MEDS ORDERED: ACETAMINOPHEN 1,000 MG/100 ML 100 ML IV PRN (14:36)
[2018-12-22] MEDS ORDERED: SODIUM CHLORIDE FLUSH 0.9% 10 ML SYRINGE IVP PRN (14:36)
[2018-12-22] MEDS ORDERED: ACETAMINOPHEN 325 MG TABLET PO PRN (14:36)
[2018-12-22] MEDS ORDERED: DOCUSATE SODIUM 100 MG CAPSULE PO PRN (14:36)
[2018-12-22] MEDS ORDERED: SENNA 8.6 MG TABLET PO PRN (14:36)
[2018-12-22] MEDS ORDERED: PROCHLORPERAZINE 10 MG/2 ML VIAL IVP PRN (14:36)
[2018-12-22] MEDS ORDERED: SUGAMMADEX 200 MG/2 ML VIAL IVP ONE (14:37)
--- NOTE | 2018-12-22 14:43 | OPERATIVE REPORT ---
Operative Report - General Admit Date: 12/21/18 Procedure Date: 12/22/18 Planned Procedure: Cannulated screw fixation of right hip fracture Pre-Op Diagnosis: Closed, impacted right subcacpital hip fracture Procedure Performed: Closed reduction and multiple cannulated screw fixation of right hip fracture Post Op Diagnosis: Same - Procedure Note Primary Surgeon: Kianna Aguilar MD Anesthesia Provider: Keon Pollack MD Anesthesia Technique: General ET tube IV Fluids (mL): 900 Estimated Blood Loss (mL): 400 Complications: None
[2018-12-22] MEDS ORDERED: PROPOFOL 200 MG/20 ML VIAL IVP ONE (14:50)
[2018-12-22] MEDS ORDERED: fentaNYL 100 MCG/2 ML VIAL IVP ONE (14:50)
[2018-12-22] MEDS ORDERED: ROCURONIUM 50 MG/5 ML VIAL IVP ONE (14:50)
[2018-12-22] MEDS ORDERED: ePHEDrine 50 MG/ML VIAL IVP ONE (14:50)
[2018-12-22] MEDS ORDERED: LIDOCAINE-MPF 2% 5 ML VIAL IM ONE (14:50)
--- NOTE | 2018-12-22 15:13 | PROVIDER PROGRESS NOTE ---
Subjective - Prog Note Date Prog Note Date: 12/22/18 - Subjective Pt reports feeling: Worse Subjective: nurse report pt has elevated Temperature and lower WBC. Pt is dementia as her baseline. will order CXR, UA, blood culture, and start on Rocephin. I called Dr. Aguilar about pt's new condition. if pt is hemdynamic stable, no more fever, Dr. Aguilar state he continue to have operation for pt on today. Current Medications - Current Medications Current Medications: Active Medications Acetaminophen (Tylenol) 650 mg PO Q4HR PRN PRN Reason: Pain 1 to 4 Last Admin: 12/22/18 10:45 Dose: 650 mg Acetaminophen (Tylenol) 650 - 975 mg PO Q4HR PRN PRN Reason: PAIN Aspirin (Ecotrin) 81 mg PO DAILY [facility] Last Admin: 12/22/18 09:14 Dose: 81 mg Atorvastatin Calcium (Lipitor) 40 mg PO DAILY [facility] Last Admin: 12/22/18 09:15 Dose: 40 mg Calcium Citrate () 250 mg PO DAILY [facility] Last Admin: 12/22/18 09:14 Dose: 250 mg Cholecalciferol (Vitamin D3) 800 unit PO DAILY [facility] Last Admin: 12/22/18 09:15 Dose: 800 unit Docusate Sodium (Colace 100mg Capsule) 100 mg PO BID PRN PRN Reason: Constipation Enoxaparin Sodium (Lovenox) 40 mg SUBQ DAILY [facility] Enoxaparin Sodium (Lovenox) 40 mg SUBQ DAILY [facility] Escitalopram Oxalate (Lexapro) 20 mg PO DAILY [facility] Last Admin: 12/22/18 09:14 Dose: 20 mg Famotidine (Pepcid) 20 mg PO BID [facility] Last Admin: 12/22/18 09:14 Dose: 20 mg Hydrochlorothiazide (Hydrodiuril) 12.5 mg PO DAILY [facility] Last Admin: 12/22/18 09:14 Dose: 12.5 mg Potassium Chloride/Dextrose/Sod Cl (D5.45ns W/20 Meq Kcl) 1,000 mls @ 125 mls/hr IV .Q8H [facility] Stop: 12/23/18 00:33 Last Admin: 12/22/18 09:10 Dose: 125 mls/hr Ceftriaxone Sodium 1 gm/ (Sodium Chloride) 100 mls @ 200 mls/hr IV DAILY [facility] Last Infusion: 12/22/18 10:21 Dose: Infused Cefazolin Sodium/Dextrose (Ancef 2 Gm/50 Ml) 2 gm in 50 mls @ 100 mls/hr IV ONCE [facility] Stop: 12/22/18 23:00 Last Infusion: 12/22/18 12:26 Dose: Infused Cefazolin Sodium/Dextrose (Ancef 2 Gm/50 Ml) 2 gm in 50 mls @ 100 mls/hr IV Q8H [facility] Stop: 12/22/18 23:14 Acetaminophen (Ofirmev) 100 mls @ 400 mls/hr IV Q6HR PRN PRN Reason: PAIN Sodium Chloride (Normal Saline 0.9%) 1,000 mls @ 100 mls/hr IV .Q10H [facility] Latanoprost (Xalatan Ophth Drops) 1 drops EACHEYE QPM [facility] Last Admin: 12/21/18 20:58 Dose: 1 drops Morphine Sulfate (Morphine (Carpuject)) 2 mg IVP Q2HR PRN PRN Reason: Pain 8 to 10 Last Admin: 12/22/18 09:06 Dose: 2 mg Morphine Sulfate (Morphine (Carpuject)) 2 mg IVP Q2HR PRN PRN Reason: PAIN Ondansetron HCl (Zofran Inj) 4 mg IVP Q6HR PRN PRN Reason: Nausea / Vomiting Oxycodone HCl (Roxicodone) 5 mg PO Q4HR PRN PRN Reason: Pain 5 to 7 Last Admin: 12/21/18 18:06 Dose: 5 mg Oxycodone HCl (Roxicodone) 5 mg PO Q4HR PRN PRN Reason: PAIN Patient Own Med ( Melatonin 5 Mg Tablet) 1 each PO QPM [facility] Last Admin: 12/21/18 19:44 Dose: Not Given Polyethylene Glycol (Miralax) 17 gm PO DAILY [facility] Last Admin: 12/22/18 09:15 Dose: 17 gm Prochlorperazine Edisylate (Compazine Inj) 10 mg IVP Q6HR PRN PRN Reason: Nausea / Vomiting Quetiapine Fumarate (Seroquel) 25 mg PO QPM [facility] Last Admin: 12/21/18 20:58 Dose: 25 mg Senna (Senokot) 17.2 mg PO Q12H PRN PRN Reason: Constipation Sodium Chloride (Normal Saline Flush 0.9%) 10 ml IVP PRN PRN PRN Reason: NEEDED PER PROVIDER ORDERS Last Admin: 12/21/18 18:25 Dose: 10 ml Sodium Chloride (Normal Saline Flush 0.9%) 10 ml IVP 0100,0900,1700 [facility] Last Admin: 12/22/18 09:09 Dose: 10 ml Sodium Chloride (Normal Saline Flush 0.9%) 10 ml IVP 0100,0900,1700 [facility] Sodium Chloride (Normal Saline Flush 0.9%) 10 ml IVP PRN PRN PRN Reason: NEEDED PER PROVIDER ORDERS hydroCHLOROthiazide [Hydrodiuril] 12.5 mg PO DAILY 08/07/16 Acetaminophen [Tylenol] 650 mg PO PRN PRN 12/21/18 Aspirin [Aspirin EC] 81 mg PO DAILY 12/21/18 Atorvastatin Calcium 40 mg PO DAILY 12/21/18 Escitalopram [Lexapro] 20 mg PO DAILY 12/21/18 Latanoprost/Pf [Latanoprost 0.005% Eye Drop] 1 drops EACHEYE QPM 12/21/18 Melatonin/Pyridoxine [Melatonin 5 mg Tablet] 5 mg PO DAILY 12/21/18 Polyethylene Glycol 1450 8.5 gm PO DAILY 12/21/18 QUEtiapine [SEROquel] 25 mg PO QPM 12/21/18 Objective - Vital Signs/Intake & Output Reviewed Vital Signs: Yes Vital Signs: Vital Signs x48h Temp Pulse Pulse Resp BP BP Pulse Ox 12/22/18 15:00 36.7 C 77 14 144/94 H 100 12/22/18 14:55 78 12 164/92 H 100 12/22/18 14:50 87 17 159/107 H 100 12/22/18 14:43 37.2 C 92 12 149/101 H 100 12/22/18 11:58 36.8 C 77 16 137/79 H 98 12/22/18 07:52 37.6 C H 94 18 133/75 H 96 Intake & Output: Intake & Output 12/19/18 12/20/18 12/21/18 12/22/18 23:59 23:59 23:59 23:59 Intake Total 245 849.000 Output Total 200 Balance 245 649.000 - Objective General Appearance: positive: No acute distress, Alert. negative: Lethargic Eyes Bilateral: positive: Normal inspection, PERRL, No lid inflammation, Conjunctivae nml ENT: positive: ENT inspection nml, Pharynx nml, No signs of dehydration. negative: Purulent nasal drainage, Pharyngeal erythema, Oral lesions Neck: positive: Nml inspection, Thyroid nml, No JVD, Trachea midline. negative: Thyromegaly, Lymphadenopathy (R), Lymphadenopathy (L), Stiff neck, Swelling/bruising, Tracheal deviation Respiratory: positive: Chest non-tender, No respiratory distress, Breath sounds nml. negative: Wheezes, Rales, Rhonchi Cardiovascular: positive: Regular rate & rhythm, No murmur, No gallop, Irregularly irregular. negative: Extrasystoles, Tachycardia, Bradycardia, JVD present, Systolic murmur, Diastolic murmur Peripheral Pulses: 2+ Radial (R), 2+ Radial (L), 2+ Dorsalis pedis (R), 2+ Dorsalis pedis (L) Abdomen: positive: Non-tender, No organomegaly, Nml bowel sounds, No distention. negative: Tenderness, Guarding, Rebound Back: positive: Nml inspection. negative: CVA tenderness (R), CVA tenderness (L) Skin: positive: Color nml, No rash, Warm, Dry. negative: Cyanosis, Diaphoresis, Pallor Extremities: positive: Nml appearance. negative: Calf tenderness, Joint swelling, Morena's sign/cords Neurologic/Psychiatric: positive: Mood/affect nml. negative: Weakness, Sensory loss, Facial droop, Slurred/abnml speech, Depressed mood/affect - Lab Results Fish Bones: 12/22/18 04:30 12/22/18 04:30 Other Labs: Lab Results x24hrs 12/22/18 12/22/18 12/22/18 Range/Units 11:30 04:30 04:30 WBC (4.8-10.8) x10^3/uL RBC (4.20-5.40) 10^6/uL Hgb (12.0-16.0) g/dL Hct (37.0-47.0) % MCV (81.0-99.0) fL MCH (27.0-31.0) pg MCHC (32.0-36.0) g/dL RDW (12.0-15.0) % Plt Count (130-450) 10^3/uL MPV (7.9-10.8) fL Neut # (Auto) (1.5-6.6) 10^3/uL Lymph # (Auto) (1.5-3.5) 10^3/uL [place] # (Auto) (0.0-1.0) 10^3/uL Eos # (Auto) (0.0-0.7) 10^3/uL Baso # (Auto) (0.0-0.1) 10^3/uL Absolute Nucleated RBC x10^3/uL Nucleated RBC % /100WBC PT (9.9-12.6) secs INR (0.8-1.2) APTT (24.9-33.3) secs Sodium 136 (135-145) mmol/L Potassium 3.9 (3.5-5.0) mmol/L Chloride 103 (101-111) mmol/L Carbon Dioxide 25 (21-32) mmol/L Anion Gap 8.0 (6-13) BUN 17 (6-20) mg/dL Creatinine 0.9 (0.4-1.0) mg/dL Estimated GFR (MDRD) 74 L (>89) Glucose 95 (70-100) mg/dL Calcium 8.8 (8.5-10.3) mg/dL Total Bilirubin (0.2-1.0) mg/dL AST (10-42) IU/L ALT (10-60) IU/L Alkaline Phosphatase (42-121) IU/L Total Protein (6.7-8.2) g/dL Albumin (3.2-5.5) g/dL Globulin (2.1-4.2) g/dL Albumin/Globulin Ratio (1.0-2.2) Triglycerides 26 ( - 149) mg/dL Cholesterol 147 ( - 199) mg/dL LDL Cholesterol Direct 48 ( - 129) mg/dL LDL Cholesterol, Calc Not Reportable VLDL Cholesterol Not Reportable HDL Cholesterol 90 (60 - ) mg/dL LDL/HDL Ratio Not Reportable dLDL/HDL Ratio 0.5 (<4.4) Cholesterol/HDL Ratio 1.6 (<4.4) Lipase (22-51) U/L Urine Color YELLOW Urine Clarity CLEAR (CLEAR) Urine pH 6.0 (5.0-7.5) PH Ur Specific [place] >=1.030 H (1.002-1.030) Urine Protein NEGATIVE (NEGATIVE) mg/dL Urine Glucose (UA) NEGATIVE (NEGATIVE) mg/dL Urine Ketones NEGATIVE (NEGATIVE) mg/dL Urine Occult Blood [place] (NEGATIVE) Urine Nitrite NEGATIVE (NEGATIVE) Urine Bilirubin NEGATIVE (NEGATIVE) Urine Urobilinogen 0.2 (NORMAL) (NORMAL) E.U./dL Ur Leukocyte Esterase NEGATIVE (NEGATIVE) Ur Microscopic Review NOT INDICATED Urine Culture Comments NOT INDICATED 12/22/18 12/21/18 12/21/18 Range/Units 04:30 15:37 15:37 WBC 3.6 L (4.8-10.8) x10^3/uL RBC 3.96 L (4.20-5.40) 10^6/uL Hgb 11.6 L (12.0-16.0) g/dL Hct 35.5 L (37.0-47.0) % MCV 89.7 (81.0-99.0) fL MCH 29.4 (27.0-31.0) pg MCHC 32.8 (32.0-36.0) g/dL RDW 14.3 (12.0-15.0) % Plt Count 146 (130-450) 10^3/uL MPV 8.5 (7.9-10.8) fL Neut # (Auto) 1.8 (1.5-6.6) 10^3/uL Lymph # (Auto) 1.4 L (1.5-3.5) 10^3/uL [place] # (Auto) 0.3 (0.0-1.0) 10^3/uL Eos # (Auto) 0.1 (0.0-0.7) 10^3/uL Baso # (Auto) 0.0 (0.0-0.1) 10^3/uL Absolute Nucleated RBC 0.00 x10^3/uL Nucleated RBC % 0.1 /100WBC PT 12.7 H (9.9-12.6) secs INR 1.1 (0.8-1.2) APTT 29.4 (24.9-33.3) secs Sodium 135 (135-145) mmol/L Potassium 3.7 (3.5-5.0) mmol/L Chloride 101 (101-111) mmol/L Carbon Dioxide 25 (21-32) mmol/L Anion Gap 9.0 (6-13) BUN 14 (6-20) mg/dL Creatinine 0.7 (0.4-1.0) mg/dL Estimated GFR (MDRD) 99 (>89) Glucose 94 (70-100) mg/dL Calcium 9.1 (8.5-10.3) mg/dL Total Bilirubin 0.7 (0.2-1.0) mg/dL AST 26 (10-42) IU/L ALT 29 (10-60) IU/L Alkaline Phosphatase 52 (42-121) IU/L Total Protein 6.7 (6.7-8.2) g/dL Albumin 3.6 (3.2-5.5) g/dL Globulin 3.1 (2.1-4.2) g/dL Albumin/Globulin Ratio 1.2 (1.0-2.2) Triglycerides ( - 149) mg/dL Cholesterol ( - 199) mg/dL LDL Cholesterol Direct ( - 129) mg/dL LDL Cholesterol, Calc VLDL Cholesterol HDL Cholesterol (60 - ) mg/dL LDL/HDL Ratio dLDL/HDL Ratio (<4.4) Cholesterol/HDL Ratio (<4.4) Lipase 26 (22-51) U/L Urine Color Urine Clarity (CLEAR) Urine pH (5.0-7.5) PH Ur Specific [place] (1.002-1.030) Urine Protein (NEGATIVE) mg/dL Urine Glucose (UA) (NEGATIVE) mg/dL Urine Ketones (NEGATIVE) mg/dL Urine Occult Blood (NEGATIVE) Urine Nitrite (NEGATIVE) Urine Bilirubin (NEGATIVE) Urine Urobilinogen (NORMAL) E.U./dL Ur Leukocyte Esterase (NEGATIVE) Ur Microscopic Review Urine Culture Comments 12/21/18 Range/Units 15:37 WBC 6.7 (4.8-10.8) x10^3/uL RBC 4.41 (4.20-5.40) 10^6/uL Hgb 13.0 (12.0-16.0) g/dL Hct 39.2 (37.0-47.0) % MCV 88.8 (81.0-99.0) fL MCH 29.5 (27.0-31.0) pg MCHC 33.2 (32.0-36.0) g/dL RDW 14.5 (12.0-15.0) % Plt Count 161 (130-450) 10^3/uL MPV 8.7 (7.9-10.8) fL Neut # (Auto) 4.5 (1.5-6.6) 10^3/uL Lymph # (Auto) 1.7 (1.5-3.5) 10^3/uL [place] # (Auto) 0.4 (0.0-1.0) 10^3/uL Eos # (Auto) 0.1 (0.0-0.7) 10^3/uL Baso # (Auto) 0.0 (0.0-0.1) 10^3/uL Absolute Nucleated RBC 0.00 x10^3/uL Nucleated RBC % 0.0 /100WBC PT (9.9-12.6) secs INR (0.8-1.2) APTT (24.9-33.3) secs Sodium (135-145) mmol/L Potassium (3.5-5.0) mmol/L Chloride (101-111) mmol/L Carbon Dioxide (21-32) mmol/L Anion Gap (6-13) BUN (6-20) mg/dL Creatinine (0.4-1.0) mg/dL Estimated GFR (MDRD) (>89) Glucose (70-100) mg/dL Calcium (8.5-10.3) mg/dL Total Bilirubin (0.2-1.0) mg/dL AST (10-42) IU/L ALT (10-60) IU/L Alkaline Phosphatase (42-121) IU/L Total Protein (6.7-8.2) g/dL Albumin (3.2-5.5) g/dL Globulin (2.1-4.2) g/dL Albumin/Globulin Ratio (1.0-2.2) Triglycerides ( - 149) mg/dL Cholesterol ( - 199) mg/dL LDL Cholesterol Direct ( - 129) mg/dL LDL Cholesterol, Calc VLDL Cholesterol HDL Cholesterol (60 - ) mg/dL LDL/HDL Ratio dLDL/HDL Ratio (<4.4) Cholesterol/HDL Ratio (<4.4) Lipase (22-51) U/L Urine Color Urine Clarity (CLEAR) Urine pH (5.0-7.5) PH Ur Specific [place] (1.002-1.030) Urine Protein (NEGATIVE) mg/dL Urine Glucose (UA) (NEGATIVE) mg/dL Urine Ketones (NEGATIVE) mg/dL Urine Occult Blood (NEGATIVE) Urine Nitrite (NEGATIVE) Urine Bilirubin (NEGATIVE) Urine Urobilinogen (NORMAL) E.U./dL Ur Leukocyte Esterase (NEGATIVE) Ur Microscopic Review Urine Culture Comments ABX Reporting Has patient been on IV antibiotics over the past 48 hours?: Yes Sepsis Event Note (H) - Evaluation Current Stage of Sepsis: Ruled out Assessment/Plan - Problem List (1) Femoral neck fracture Impression: 12/22 orthopedics will operate pt today followup with pain control PT/OT CT reveals femoral right neck fracture, plan to repair on tomorrow consult with orthopedics surgeon pain control NPO after midnight DVT prophylaxis (2) Dementia Conclusion/Plan: 12/22 stable as her baseline pt has hx of advanced dementia. Meet with family, answer her questions. support pt, feed pt as needed, aspiration precaution (3) HTN (hypertension) Conclusion/Plan: stable now. resume home HTN medications, vital monitor (4) Hyperlipidemia Conclusion/Plan: stable and lower level of lipid check lipid panel, resume home Lipitor (5) Anxiety Conclusion/Plan: stable, resume home meds Qualifiers: Encounter type: initial encounter Fracture type: closed Laterality: right Qualified Code(s): S72.001A - Fracture of unspecified part of neck of right femur, initial encounter for closed fracture
--- NOTE | 2018-12-22 15:14 | XRAY Report ---
Reason: FX RIGHT HIP Procedure Date: 12/22/2018 Accession Number: [id number] / [id number] Procedure: [place] - OR C-Arm Procedure CPT Code: FULL RESULT: EXAM: FLUOROSCOPIC GUIDANCE EXAM DATE: 12/22/2018 02:54 PM. CLINICAL HISTORY: Fracture right hip. COMPARISON: Right hip pinning 12/22/2018 12:50 PM. FINDINGS: Partially threaded cannulated screws are seen traversing the right femoral neck. IMPRESSION: Fluoroscopic guidance provided for right hip ORIF. Total fluoroscopy time: 17 seconds. Number of images: 2. RADIA
--- NOTE | 2018-12-22 15:15 | XRAY Report ---
Reason: RIGHT HIP PINNING Procedure Date: 12/22/2018 Accession Number: [id number] / [id number] Procedure: XR - Hip w/Pelvis 1V RT CPT Code: FULL RESULT: EXAM: RIGHT HIP FLUOROSCOPY CAPTURES. EXAM DATE: 12/22/2018 02:56 PM. CLINICAL HISTORY: Right hip pinning. COMPARISON: None. TECHNIQUE: 2 views. FINDINGS: Three partially threaded cannulated screws are seen, pinning the right hip. Intraoperative fluoroscopic captures, the radiologist was not present. IMPRESSION: Right hip pinning. RADIA
--- NOTE | 2018-12-22 15:25 | OPERATIVE REPORT ---
DATE OF SERVICE: 12/22/2018 Physician: Valeriano Aguilar MD PREOPERATIVE DIAGNOSIS: Nondisplaced impacted right subcapital hip fracture. POSTOPERATIVE DIAGNOSIS: Nondisplaced impacted right subcapital hip fracture. PROCEDURE PERFORMED: Closed reduction and multiple cannulated screw fixation of right hip fracture. SURGEON: Valeriano Aguilar MD ANESTHESIA: General. DESCRIPTION OF PROCEDURE: The patient was taken to the operating room on the afternoon of 12/22/2018 , where she was placed under a general anesthetic in the supine position. She was then transferred o nto the fracture table in the supine position. Her left un-fractured extremity had her hip flexed an d widely abducted and held with a well leg michele. Her right fractured extremity was then placed in the axial traction, with the leg internally rotated about 25 degrees. Fluoroscopic views of her hip showed good visualization of the hip joint and the proximal femur. The fracture was still impacted i n stable position. We then prepped and draped the lateral aspect of the right hip in the usual fashion for our procedure . Making a 2 cm skin incision laterally about the hip, we dissected through the skin and fascial lay er, down to the proximal lateral femoral cortex. We then proceeded to drive a threaded-tip guidewire through the proximal femur and femoral neck, and into the femoral head. Fluoroscopic view in AP and lateral projection showed good placement of our pin and proper depth. Using our parallel pin guide, we then proceeded to insert two additional guide pins, parallel to the first one in a similar fashio n. Fluoroscopic view again showed the pins to be in satisfactory position and in proper depth, with the tips of the pins within about 3 mm of subchondral bone in both AP and lateral projections. We then used the direct measuring guide, and determined that we would use three screws, each 6.5 mm i n diameter, 16 mm threads and 85 mm lengths. We then used the cannulated drill and perforated the la teral femoral cortex, and using our guide pins as guides on all three screw paths. We then proceeded to insert the selected cannulated screws over our guide pins, until we were able to get good bony pu rchase in all three screws. Fluoroscopic views were obtained showing again good reduction of her fra cture, and satisfactory placement and depth of our three cannulated screws in both AP and lateral pro jections. Satisfied with this, we then removed our guide pins from the wound, irrigated the wound with saline, then closed the wound in layers using buried simple stitch of 0 Vicryl to close the fascial layer; se barger interrupted buried simple stitches of 2-0 Vicryl, closed the subcutaneous tissues, and finally skin alexandra used to approximate the skin edge. A total of 10 mL of 0.25% Marcaine was used for loca l anesthetic at the incision site. We then dressed the wound, transferred the patient off the fractu re table onto her bed and she was taken to recovery room in satisfactory condition. ESTIMATED BLOOD LOSS: 400 mL. REPLACEMENT: 900 mL of crystalloid. INTRAOPERATIVE COMPLICATIONS: None. PLAN: The patient will be advanced to walker ambulation, weightbearing as tolerated on the left lowe r extremity. TD: 12/22/2018 15:02
[2018-12-22] MEDS: SODIUM CHLORIDE 0.9% 1,000 ML IV SCH (16:38)
[2018-12-22] MEDS: ceFAZolin 2 GM/50 ML 2 GM/50 ML BAG IV SCH (19:07)
[2018-12-22] MEDS: LATANOPROST 0.005% OPHTH DROPS EACHEYE SCH (20:08)
[2018-12-22] MEDS: QUEtiapine 25 MG TABLET PO SCH (20:08)
[2018-12-22] MEDS: MELATONIN 5 MG PO SCH (20:08)
[2018-12-23] MEDS: SODIUM CHLORIDE FLUSH 0.9% 10 ML SYRINGE IVP SCH ×5 (02:51→15:47)
[2018-12-23] MEDS: SODIUM CHLORIDE 0.9% 1,000 ML IV SCH ×3 (02:51→23:06)
[2018-12-23] MEDS: ceFAZolin 2 GM/50 ML 2 GM/50 ML BAG IV SCH (02:51)
[2018-12-23 04:55] LABS: BASOPHILS % (AUTO) 0.9 %; EOSINOPHILS # (AUTO) 0.1 10^3/uL (0.0-0.7); EOSINOPHILS % (AUTO) 1.5 %; HGB - HEMOGLOBIN 9.3 g/dL (12.0-16.0); LYMPHOCYTES # (AUTO) 1.3 10^3/uL (1.5-3.5); LYMPHOCYTES % (AUTO) 27.1 %; MEAN CORPUSCULAR HEMOGLOBIN 29.6 pg (27.0-31.0); MEAN CORPUSCULAR HGB CONC 33.4 g/dL (32.0-36.0); MEAN CORPUSCULAR VOLUME 88.6 fL (81.0-99.0); MEAN PLATELET VOLUME 8.5 fL (7.9-10.8); MONOCYTES # (AUTO) 0.4 10^3/uL (0.0-1.0); MONOCYTES % (AUTO) 7.5 %; PLT - PLATELET COUNT 119 10^3/uL (130-450); RED BLOOD COUNT 3.15 10^6/uL (4.20-5.40); RED CELL DISTRIBUTION WIDTH 14.3 % (12.0-15.0); WHITE BLOOD COUNT 4.8 x10^3/uL (4.8-10.8)
[2018-12-23 05:03] LABS: CALCIUM 8.3 mg/dL (8.5-10.3); CREATININE 0.9 mg/dL (0.4-1.0)
[2018-12-23 08:35] LABS: ABSOLUTE RETICS # AUTO 0.031 10^6/uL (0.020-0.110); MEAN RETIC VALUE 112.2; RED BLOOD COUNT 3.08 10^6/uL (4.20-5.40)
[2018-12-23] MEDS: SENNA 8.6 MG TABLET PO SCH (08:51)
[2018-12-23] MEDS: POLYETHYLENE GLYCOL 3350 17 GM PACKET PO SCH (08:52)
[2018-12-23] MEDS: ASPIRIN EC 81 MG TABLET PO SCH (08:52)
[2018-12-23] MEDS: ESCITALOPRAM 10 MG TABLET PO SCH (08:52)
[2018-12-23] MEDS: hydroCHLOROthiazide 12.5 MG CAPSULE PO SCH (08:52)
[2018-12-23] MEDS: ENOXAPARIN 40 MG/0.4 ML SYRINGE SUBQ SCH (08:52)
[2018-12-23] MEDS: ATORVASTATIN 40 MG TABLET PO SCH (08:52)
[2018-12-23] MEDS: FAMOTIDINE 20 MG TABLET PO SCH ×2 (08:52→20:09)
[2018-12-23] MEDS: CALCIUM CITRATE 250 MG TABLET PO SCH (08:53)
[2018-12-23] MEDS: CHOLECALCIFEROL 400 UNIT TABLET PO SCH (08:54)
[2018-12-23] MEDS: DOCUSATE SODIUM 250 MG CAPSULE PO SCH (08:54)
[2018-12-23] MEDS: cefTRIAXone 1 GM in SODIUM CHLORIDE 0.9% MINIBAG 100 ML IV SCH (09:00)
[2018-12-23] MEDS ORDERED: ENOXAPARIN 40 MG/0.4 ML SYRINGE SUBQ SCH (09:00)
[2018-12-23 09:04] LABS: % IRON SATURATION 15 % (20-50); IRON 30 ug/dL (28-170); TOTAL IRON BINDING CAPACITY 203 ug/dL (250-450); TRANSFERRIN 145 mg/dL (192-382)
[2018-12-23 09:23] LABS: FERRITIN 48.8 ng/mL (11.0-306.8)
[2018-12-23] MEDS: oxyCODONE 5 MG TABLET PO PRN (10:04)
[2018-12-23] MEDS: ACETAMINOPHEN 325 MG TABLET PO PRN (10:05)
--- NOTE | 2018-12-23 12:01 | CONSULTATION NOTE ---
DATE OF SERVICE: 12/22/2018 Physician: Valeriano Aguilar MD PLEASE VERIFY DATE OF SERVICE/CONSULT ADMIT DATE 12/21 OR DICTATION DATE 12/22? pls remove this flag before signing - thnx. REFERRING PHYSICIAN: Dr. Ubaldo Hernandez of the emergency room department. HISTORY OF PRESENT ILLNESS: Patient is a 73-year-old female resident of a retirement, demented, who a pparently had a ground-level fall at her retirement yesterday injuring her right hip. She was noted t o have pain with hip motion and was unable to stand or weight bear. She was taken to the emergency r oom, here at [facility], where her evaluation led to the diagnosis of her impacted, ess entially nondisplaced right subcapital hip fracture. This was noted on a pelvic CT scan that was obt ained at that time. No other apparent injuries were noted. The patient is being admitted then for m edical stabilization proceeding with surgical fixation of her hip fracture. PHYSICAL EXAMINATION: The patient is an elderly woman lying in bed in a mild amount of discomfort. The patient has pain with right hip range of motion. The patient is able to move her toes well. Sen sation appeared to be grossly intact. Good capillary filling of the digits. IMAGES: CT scan of her pelvis area showed an impacted, essentially nondisplaced right subcapital hip fracture. ASSESSMENT 1. Closed, nondisplaced right subcapital hip fracture. 2. Dementia. PLAN: The patient has been cleared by Medicine to proceed with surgery. She was noted to have some mild fever this morning, but this was thought to be in part either due to a urinary tract infection o r possibly from early atelectasis from her being bedbound. Proceeding with surgery will likely impro ve her pulmonary status. Her preoperative antibiotic will likely help with any potential UTI that srini greg may have. Urinary studies are still pending at this point. I have discussed the patient's diagnos is and treatment plan with her power of state's attorney, her daughter, Fara Frankel. The risks and benefit s of surgery were explained, including anesthesia risks, infection, blood loss, nerve damage, blood c lots, nonunion, avascular necrosis, etc. Her questions were answered. They wish to proceed with francesca nunez later this afternoon. The leg was marked. Consent was signed. TD: 12/22/2018 11:35
[2018-12-23] MEDS: MORPHINE 2 MG/ML CARPUJECT IVP PRN ×2 (13:11→19:17)
--- NOTE | 2018-12-23 13:46 | PROVIDER PROGRESS NOTE ---
Subjective - Prog Note Date Prog Note Date: 12/23/18 Prog Note Time: 13:44 - Subjective Pt reports feeling: Improved (No complaints) Objective - Vital Signs/Intake & Output Vital Signs: Vital Signs x48h Temp Pulse Resp BP Pulse Ox 12/23/18 07:48 37.3 C 88 17 133/72 H 98 Intake & Output: Intake & Output 12/20/18 12/21/18 12/22/18 12/23/18 23:59 23:59 23:59 23:59 Intake Total 245 2197.333 2275.000 Output Total 450 450 Balance 245 9078.271 3230.000 - Lab Results Fish Bones: 12/23/18 04:25 12/23/18 04:25 Other Labs: Lab Results x24hrs 12/23/18 12/23/18 12/23/18 Range/Units 08:24 08:24 08:24 WBC (4.8-10.8) x10^3/uL RBC (4.20-5.40) 10^6/uL Hgb (12.0-16.0) g/dL Hct (37.0-47.0) % MCV (81.0-99.0) fL MCH (27.0-31.0) pg MCHC (32.0-36.0) g/dL RDW (12.0-15.0) % Plt Count (130-450) 10^3/uL MPV (7.9-10.8) fL Reticulocyte % (Auto) (0.5-2.3) % Neut # (Auto) (1.5-6.6) 10^3/uL Lymph # (Auto) (1.5-3.5) 10^3/uL [place] # (Auto) (0.0-1.0) 10^3/uL Eos # (Auto) (0.0-0.7) 10^3/uL Baso # (Auto) (0.0-0.1) 10^3/uL Absolute Nucleated RBC x10^3/uL Nucleated RBC % /100WBC Absolute Retic (0.020-0.110) 10^6/uL Sodium (135-145) mmol/L Potassium (3.5-5.0) mmol/L Chloride (101-111) mmol/L Carbon Dioxide (21-32) mmol/L Anion Gap (6-13) BUN (6-20) mg/dL Creatinine (0.4-1.0) mg/dL Estimated GFR (MDRD) (>89) Glucose (70-100) mg/dL Calcium (8.5-10.3) mg/dL Iron 30 (28-170) ug/dL TIBC 203 L (250-450) ug/dL % Saturation 15 L (20-50) % Transferrin 145 L (192-382) mg/dL Ferritin 48.8 (11.0-306.8) ng/mL Lactate Dehydrogenase 165 (91-225) IU/L Vitamin B12 312 (180-914) pg/mL 12/23/18 12/23/18 12/23/18 Range/Units 08:24 04:25 04:25 WBC 4.8 (4.8-10.8) x10^3/uL RBC 3.08 L 3.15 L (4.20-5.40) 10^6/uL Hgb 9.3 L (12.0-16.0) g/dL Hct 27.9 L (37.0-47.0) % MCV 88.6 (81.0-99.0) fL MCH 29.6 (27.0-31.0) pg MCHC 33.4 (32.0-36.0) g/dL RDW 14.3 (12.0-15.0) % Plt Count 119 L (130-450) 10^3/uL MPV 8.5 (7.9-10.8) fL Reticulocyte % (Auto) 1.00 (0.5-2.3) % Neut # (Auto) 3.0 (1.5-6.6) 10^3/uL Lymph # (Auto) 1.3 L (1.5-3.5) 10^3/uL [place] # (Auto) 0.4 (0.0-1.0) 10^3/uL Eos # (Auto) 0.1 (0.0-0.7) 10^3/uL Baso # (Auto) 0.0 (0.0-0.1) 10^3/uL Absolute Nucleated RBC 0.00 x10^3/uL Nucleated RBC % 0.1 /100WBC Absolute Retic 0.031 (0.020-0.110) 10^6/uL Sodium 135 (135-145) mmol/L Potassium 3.7 (3.5-5.0) mmol/L Chloride 102 (101-111) mmol/L Carbon Dioxide 25 (21-32) mmol/L Anion Gap 8.0 (6-13) BUN 11 (6-20) mg/dL Creatinine 0.9 (0.4-1.0) mg/dL Estimated GFR (MDRD) 74 L (>89) Glucose 105 H (70-100) mg/dL Calcium 8.3 L (8.5-10.3) mg/dL Iron (28-170) ug/dL TIBC (250-450) ug/dL % Saturation (20-50) % Transferrin (192-382) mg/dL Ferritin (11.0-306.8) ng/mL Lactate Dehydrogenase (91-225) IU/L Vitamin B12 (180-914) pg/mL - Other Results/Comments Other Results/Comments: EXAM: Dressing intact. Some pain with hip motion. Sitting at bedside with help. N/V ok distally Sepsis Event Note (H) - Evaluation Current Stage of Sepsis: Ruled out Assessment/Plan - Problem List (1) Femoral neck fracture Impression: Satis post op PLAN: Mobilize as tolerated. Repeat CBNC in AM. Qualifiers: Encounter type: initial encounter Fracture type: closed Laterality: right Qualified Code(s): S72.001A - Fracture of unspecified part of neck of right femur, initial encounter for closed fracture
--- NOTE | 2018-12-23 13:48 | PROVIDER PROGRESS NOTE ---
Subjective - Prog Note Date Prog Note Date: 12/23/18 - Subjective Pt reports feeling: Improved Subjective: pt has dementia as her baseline, no reverse event is reported on last night. Current Medications - Current Medications Current Medications: Active Medications Acetaminophen (Tylenol) 650 mg PO Q4HR PRN PRN Reason: Pain 1 to 4 Last Admin: 12/23/18 10:05 Dose: 650 mg Acetaminophen (Tylenol) 650 - 975 mg PO Q4HR PRN PRN Reason: PAIN Aspirin (Ecotrin) 81 mg PO DAILY [facility] Last Admin: 12/23/18 08:52 Dose: 81 mg Atorvastatin Calcium (Lipitor) 40 mg PO DAILY [facility] Last Admin: 12/23/18 08:52 Dose: 40 mg Calcium Citrate () 250 mg PO DAILY [facility] Last Admin: 12/23/18 08:53 Dose: 250 mg Cholecalciferol (Vitamin D3) 800 unit PO DAILY [facility] Last Admin: 12/23/18 08:54 Dose: 800 unit Docusate Sodium (Colace 100mg Capsule) 100 mg PO BID PRN PRN Reason: Constipation Docusate Sodium (Colace 250mg Capsule) 250 - 500 mg PO DAILY [facility] Last Admin: 12/23/18 08:54 Dose: Not Given Enoxaparin Sodium (Lovenox) 40 mg SUBQ DAILY [facility] Last Admin: 12/23/18 08:52 Dose: 40 mg Escitalopram Oxalate (Lexapro) 20 mg PO DAILY [facility] Last Admin: 12/23/18 08:52 Dose: 20 mg Famotidine (Pepcid) 20 mg PO BID [facility] Last Admin: 12/23/18 08:52 Dose: 20 mg Hydrochlorothiazide (Hydrodiuril) 12.5 mg PO DAILY [facility] Last Admin: 12/23/18 08:52 Dose: 12.5 mg Ceftriaxone Sodium 1 gm/ (Sodium Chloride) 100 mls @ 200 mls/hr IV DAILY [facility] Last Infusion: 12/23/18 09:30 Dose: Infused Acetaminophen (Ofirmev) 100 mls @ 400 mls/hr IV Q6HR PRN PRN Reason: PAIN Sodium Chloride (Normal Saline 0.9%) 1,000 mls @ 100 mls/hr IV .Q10H [facility] Last Admin: 12/23/18 13:13 Dose: 100 mls/hr Latanoprost (Xalatan Ophth Drops) 1 drops EACHEYE QPM [facility] Last Admin: 12/22/18 20:08 Dose: 1 drops Morphine Sulfate (Morphine (Carpuject)) 2 mg IVP Q2HR PRN PRN Reason: PAIN Last Admin: 12/23/18 13:11 Dose: 2 mg Ondansetron HCl (Zofran Inj) 4 mg IVP Q6HR PRN PRN Reason: Nausea / Vomiting Oxycodone HCl (Roxicodone) 5 mg PO Q4HR PRN PRN Reason: PAIN Last Admin: 12/23/18 10:04 Dose: 5 mg Patient Own Med ( Melatonin 5 Mg Tablet) 1 each PO QPM [facility] Last Admin: 12/22/18 20:08 Dose: Not Given Polyethylene Glycol (Miralax) 17 gm PO DAILY [facility] Last Admin: 12/23/18 08:52 Dose: 17 gm Prochlorperazine Edisylate (Compazine Inj) 10 mg IVP Q6HR PRN PRN Reason: Nausea / Vomiting Quetiapine Fumarate (Seroquel) 25 mg PO QPM [facility] Last Admin: 12/22/18 20:08 Dose: 25 mg Senna (Senokot) 17.2 mg PO Q12H PRN PRN Reason: Constipation Senna (Senokot) 8.6 - 17.2 mg PO DAILY [facility] Last Admin: 12/23/18 08:51 Dose: 17.2 mg Sodium Chloride (Normal Saline Flush 0.9%) 10 ml IVP PRN PRN PRN Reason: NEEDED PER PROVIDER ORDERS Last Admin: 12/21/18 18:25 Dose: 10 ml Sodium Chloride (Normal Saline Flush 0.9%) 10 ml IVP 0100,0900,1700 [facility] Last Admin: 12/23/18 08:54 Dose: Not Given Sodium Chloride (Normal Saline Flush 0.9%) 10 ml IVP 0100,0900,1700 [facility] Last Admin: 12/23/18 08:54 Dose: Not Given Sodium Chloride (Normal Saline Flush 0.9%) 10 ml IVP PRN PRN PRN Reason: NEEDED PER PROVIDER ORDERS hydroCHLOROthiazide [Hydrodiuril] 12.5 mg PO DAILY 08/07/16 Acetaminophen [Tylenol] 650 mg PO PRN PRN 12/21/18 Aspirin [Aspirin EC] 81 mg PO DAILY 12/21/18 Atorvastatin Calcium 40 mg PO DAILY 12/21/18 Escitalopram [Lexapro] 20 mg PO DAILY 12/21/18 Latanoprost/Pf [Latanoprost 0.005% Eye Drop] 1 drops EACHEYE QPM 12/21/18 Melatonin/Pyridoxine [Melatonin 5 mg Tablet] 5 mg PO DAILY 12/21/18 Polyethylene Glycol 1450 8.5 gm PO DAILY 12/21/18 QUEtiapine [SEROquel] 25 mg PO QPM 12/21/18 Objective - Vital Signs/Intake & Output Reviewed Vital Signs: Yes Vital Signs: Vital Signs x48h Temp Pulse Resp BP Pulse Ox 12/23/18 07:48 37.3 C 88 17 133/72 H 98 Intake & Output: Intake & Output 12/20/18 12/21/18 12/22/18 12/23/18 23:59 23:59 23:59 23:59 Intake Total 245 2197.333 2275.000 Output Total 450 450 Balance 245 3849.016 7043.000 - Objective General Appearance: positive: No acute distress, Alert. negative: Lethargic Eyes Bilateral: positive: Normal inspection, PERRL, No lid inflammation, Conjunctivae nml ENT: positive: ENT inspection nml, Pharynx nml, No signs of dehydration. negative: Purulent nasal drainage, Pharyngeal erythema, Oral lesions Neck: positive: Nml inspection, Thyroid nml, No JVD, Trachea midline. negative: Thyromegaly, Lymphadenopathy (R), Lymphadenopathy (L), Stiff neck, Swelling/bruising, Tracheal deviation Respiratory: positive: Chest non-tender, No respiratory distress. negative: Wheezes, Rales, Rhonchi Cardiovascular: positive: Regular rate & rhythm, No murmur, No gallop. negative: Irregularly irregular, Extrasystoles, Tachycardia, Bradycardia, JVD present, Systolic murmur, Diastolic murmur Peripheral Pulses: 2+ Radial (R), 2+ Radial (L), 2+ Dorsalis pedis (R), 2+ Dorsalis pedis (L) Abdomen: positive: Non-tender, No organomegaly, Nml bowel sounds, No distention. negative: Tenderness, Guarding, Rebound Back: positive: Nml inspection. negative: CVA tenderness (R), CVA tenderness (L) Skin: positive: Color nml, No rash, Warm, Dry. negative: Cyanosis, Diaphoresis, Pallor Extremities: positive: Non-tender, Nml appearance. negative: Calf tenderness, Joint swelling, Morena's sign/cords Neurologic/Psychiatric: negative: Weakness, Sensory loss, Facial droop, Slurred/abnml speech, Depressed mood/affect - Lab Results Fish Bones: 12/23/18 04:25 12/23/18 04:25 Other Labs: Lab Results x24hrs 12/23/18 12/23/18 12/23/18 Range/Units 08:24 08:24 08:24 WBC (4.8-10.8) x10^3/uL RBC (4.20-5.40) 10^6/uL Hgb (12.0-16.0) g/dL Hct (37.0-47.0) % MCV (81.0-99.0) fL MCH (27.0-31.0) pg MCHC (32.0-36.0) g/dL RDW (12.0-15.0) % Plt Count (130-450) 10^3/uL MPV (7.9-10.8) fL Reticulocyte % (Auto) (0.5-2.3) % Neut # (Auto) (1.5-6.6) 10^3/uL Lymph # (Auto) (1.5-3.5) 10^3/uL [place] # (Auto) (0.0-1.0) 10^3/uL Eos # (Auto) (0.0-0.7) 10^3/uL Baso # (Auto) (0.0-0.1) 10^3/uL Absolute Nucleated RBC x10^3/uL Nucleated RBC % /100WBC Absolute Retic (0.020-0.110) 10^6/uL Sodium (135-145) mmol/L Potassium (3.5-5.0) mmol/L Chloride (101-111) mmol/L Carbon Dioxide (21-32) mmol/L Anion Gap (6-13) BUN (6-20) mg/dL Creatinine (0.4-1.0) mg/dL Estimated GFR (MDRD) (>89) Glucose (70-100) mg/dL Calcium (8.5-10.3) mg/dL Iron 30 (28-170) ug/dL TIBC 203 L (250-450) ug/dL % Saturation 15 L (20-50) % Transferrin 145 L (192-382) mg/dL Ferritin 48.8 (11.0-306.8) ng/mL Lactate Dehydrogenase 165 (91-225) IU/L Vitamin B12 312 (180-914) pg/mL 12/23/18 12/23/18 12/23/18 Range/Units 08:24 04:25 04:25 WBC 4.8 (4.8-10.8) x10^3/uL RBC 3.08 L 3.15 L (4.20-5.40) 10^6/uL Hgb 9.3 L (12.0-16.0) g/dL Hct 27.9 L (37.0-47.0) % MCV 88.6 (81.0-99.0) fL MCH 29.6 (27.0-31.0) pg MCHC 33.4 (32.0-36.0) g/dL RDW 14.3 (12.0-15.0) % Plt Count 119 L (130-450) 10^3/uL MPV 8.5 (7.9-10.8) fL Reticulocyte % (Auto) 1.00 (0.5-2.3) % Neut # (Auto) 3.0 (1.5-6.6) 10^3/uL Lymph # (Auto) 1.3 L (1.5-3.5) 10^3/uL [place] # (Auto) 0.4 (0.0-1.0) 10^3/uL Eos # (Auto) 0.1 (0.0-0.7) 10^3/uL Baso # (Auto) 0.0 (0.0-0.1) 10^3/uL Absolute Nucleated RBC 0.00 x10^3/uL Nucleated RBC % 0.1 /100WBC Absolute Retic 0.031 (0.020-0.110) 10^6/uL Sodium 135 (135-145) mmol/L Potassium 3.7 (3.5-5.0) mmol/L Chloride 102 (101-111) mmol/L Carbon Dioxide 25 (21-32) mmol/L Anion Gap 8.0 (6-13) BUN 11 (6-20) mg/dL Creatinine 0.9 (0.4-1.0) mg/dL Estimated GFR (MDRD) 74 L (>89) Glucose 105 H (70-100) mg/dL Calcium 8.3 L (8.5-10.3) mg/dL Iron (28-170) ug/dL TIBC (250-450) ug/dL % Saturation (20-50) % Transferrin (192-382) mg/dL Ferritin (11.0-306.8) ng/mL Lactate Dehydrogenase (91-225) IU/L Vitamin B12 (180-914) pg/mL ABX Reporting Has patient been on IV antibiotics over the past 48 hours?: Yes Sepsis Event Note (H) - Evaluation Current Stage of Sepsis: Ruled out Assessment/Plan - Problem List (1) Femoral neck fracture Impression: 12/23 day one status post right femoral neck repair continue pain control continue PT/OT 12/22 orthopedics will operate pt today followup with pain control PT/OT CT reveals femoral right neck fracture, plan to repair on tomorrow consult with orthopedics surgeon pain control NPO after midnight DVT prophylaxis (2) Dementia Conclusion/Plan: 12/22 stable as her baseline pt has hx of advanced dementia. Meet with family, answer her questions. support pt, feed pt as needed, aspiration precaution (3) HTN (hypertension) Conclusion/Plan: stable now. resume home HTN medications, vital monitor (4) Hyperlipidemia Conclusion/Plan: stable and lower level of lipid check lipid panel, resume home Lipitor (5) Anxiety Conclusion/Plan: stable, resume home meds (6) left basilar airspace disease pt has elevated temperature, sweating, reduced WBC on yesterday. UA is negative, CXR reveals minor left basilar airspace disease, start on Rocephin, blood culture. Qualifiers: Encounter type: initial encounter Fracture type: closed Laterality: right Qualified Code(s): S72.001A - Fracture of unspecified part of neck of right f emur, initial encounter for closed fracture
[2018-12-23] MEDS: QUEtiapine 25 MG TABLET PO SCH (20:09)
[2018-12-23] MEDS: LATANOPROST 0.005% OPHTH DROPS EACHEYE SCH (20:09)
[2018-12-23] MEDS: MELATONIN 5 MG PO SCH (20:10)
[2018-12-24] MEDS: SODIUM CHLORIDE FLUSH 0.9% 10 ML SYRINGE IVP SCH ×3 (00:31→17:00)
[2018-12-24 05:38] LABS: BASOPHILS % (AUTO) 0.7 %; EOSINOPHILS # (AUTO) 0.2 10^3/uL (0.0-0.7); EOSINOPHILS % (AUTO) 3.3 %; HGB - HEMOGLOBIN 8.6 g/dL (12.0-16.0); LYMPHOCYTES # (AUTO) 0.9 10^3/uL (1.5-3.5); LYMPHOCYTES % (AUTO) 19.6 %; MEAN CORPUSCULAR HEMOGLOBIN 29.3 pg (27.0-31.0); MEAN CORPUSCULAR HGB CONC 32.6 g/dL (32.0-36.0); MEAN PLATELET VOLUME 8.9 fL (7.9-10.8); MONOCYTES # (AUTO) 0.4 10^3/uL (0.0-1.0); MONOCYTES % (AUTO) 7.5 %; NEUTROPHILS # (AUTO) 3.2 10^3/uL (1.5-6.6); NEUTROPHILS % (AUTO) 68.9 %; PLT - PLATELET COUNT 107 10^3/uL (130-450); RED BLOOD COUNT 2.95 10^6/uL (4.20-5.40); RED CELL DISTRIBUTION WIDTH 14.2 % (12.0-15.0); WHITE BLOOD COUNT 4.6 x10^3/uL (4.8-10.8)
[2018-12-24 05:41] LABS: CALCIUM 8.2 mg/dL (8.5-10.3); CREATININE 0.7 mg/dL (0.4-1.0)
[2018-12-24] MEDS ORDERED: POTASSIUM CHLORIDE 20 MEQ TABLET PO ONE (06:07)
[2018-12-24] MEDS: SODIUM CHLORIDE 0.9% 1,000 ML IV SCH ×3 (06:47→21:59)
[2018-12-24] MEDS: hydroCHLOROthiazide 12.5 MG CAPSULE PO SCH (08:32)
[2018-12-24] MEDS: DOCUSATE SODIUM 250 MG CAPSULE PO SCH (08:32)
[2018-12-24] MEDS: CHOLECALCIFEROL 400 UNIT TABLET PO SCH (08:32)
[2018-12-24] MEDS: SENNA 8.6 MG TABLET PO SCH (08:32)
[2018-12-24] MEDS: ASPIRIN EC 81 MG TABLET PO SCH (08:32)
[2018-12-24] MEDS: CALCIUM CITRATE 250 MG TABLET PO SCH (08:33)
[2018-12-24] MEDS: POLYETHYLENE GLYCOL 3350 17 GM PACKET PO SCH (08:33)
[2018-12-24] MEDS: ENOXAPARIN 40 MG/0.4 ML SYRINGE SUBQ SCH (08:33)
[2018-12-24] MEDS: ATORVASTATIN 40 MG TABLET PO SCH (08:33)
[2018-12-24] MEDS: FAMOTIDINE 20 MG TABLET PO SCH ×2 (08:33→20:52)
[2018-12-24] MEDS: cefTRIAXone 1 GM in SODIUM CHLORIDE 0.9% MINIBAG 100 ML IV SCH (08:33)
[2018-12-24] MEDS: ESCITALOPRAM 10 MG TABLET PO SCH (08:33)
--- NOTE | 2018-12-24 12:01 | PROVIDER PROGRESS NOTE ---
Subjective - Prog Note Date Prog Note Date: 12/24/18 Prog Note Time: 08:35 - Subjective Subjective: Patient awake, minimally verbal but will look at provider when spoken to K 3.4 No acute events overnight Current Medications - Current Medications Current Medications: Acetaminophen (Tylenol) 650 mg PO Q4HR PRN PRN Reason: Pain 1 to 4 Last Admin: 12/23/18 10:05 Dose: 650 mg Acetaminophen (Tylenol) 650 - 975 mg PO Q4HR PRN PRN Reason: PAIN Aspirin (Ecotrin) 81 mg PO DAILY [facility] Last Admin: 12/24/18 08:32 Dose: 81 mg Atorvastatin Calcium (Lipitor) 40 mg PO DAILY [facility] Last Admin: 12/24/18 08:33 Dose: 40 mg Calcium Citrate () 250 mg PO DAILY [facility] Last Admin: 12/24/18 08:33 Dose: 250 mg Cholecalciferol (Vitamin D3) 800 unit PO DAILY [facility] Last Admin: 12/24/18 08:32 Dose: 800 unit Docusate Sodium (Colace 250mg Capsule) 250 - 500 mg PO DAILY [facility] Last Admin: 12/24/18 08:32 Dose: 250 mg Enoxaparin Sodium (Lovenox) 40 mg SUBQ DAILY [facility] Last Admin: 12/24/18 08:33 Dose: 40 mg Escitalopram Oxalate (Lexapro) 20 mg PO DAILY [facility] Last Admin: 12/24/18 08:33 Dose: 20 mg Famotidine (Pepcid) 20 mg PO BID [facility] Last Admin: 12/24/18 08:33 Dose: 20 mg Hydrochlorothiazide (Hydrodiuril) 12.5 mg PO DAILY [facility] Last Admin: 12/24/18 08:32 Dose: 12.5 mg Acetaminophen (Ofirmev) 100 mls @ 400 mls/hr IV Q6HR PRN PRN Reason: PAIN Last Infusion: 12/23/18 16:39 Dose: Infused Sodium Chloride (Normal Saline 0.9%) 1,000 mls @ 50 mls/hr IV .Q20H [facility] Last Admin: 12/24/18 11:06 Dose: 50 mls/hr Latanoprost (Xalatan Ophth Drops) 1 drops EACHEYE QPM [facility] Last Admin: 12/23/18 20:09 Dose: 1 drops Morphine Sulfate (Morphine (Carpuject)) 2 mg IVP Q2HR PRN PRN Reason: PAIN Last Admin: 12/23/18 19:17 Dose: 2 mg Ondansetron HCl (Zofran Inj) 4 mg IVP Q6HR PRN PRN Reason: Nausea / Vomiting Oxycodone HCl (Roxicodone) 5 mg PO Q4HR PRN PRN Reason: PAIN Last Admin: 12/23/18 10:04 Dose: 5 mg Patient Own Med ( Melatonin 5 Mg Tablet) 1 each PO QPM [facility] Last Admin: 12/23/18 20:10 Dose: Not Given Polyethylene Glycol (Miralax) 17 gm PO DAILY [facility] Last Admin: 12/24/18 08:33 Dose: Not Given Prochlorperazine Edisylate (Compazine Inj) 10 mg IVP Q6HR PRN PRN Reason: Nausea / Vomiting Quetiapine Fumarate (Seroquel) 25 mg PO QPM [facility] Last Admin: 12/23/18 20:09 Dose: 25 mg Senna (Senokot) 8.6 - 17.2 mg PO DAILY [facility] Last Admin: 12/24/18 08:32 Dose: 8.6 mg Sodium Chloride (Normal Saline Flush 0.9%) 10 ml IVP 0100,0900,1700 [facility] Last Admin: 12/24/18 08:33 Dose: Not Given Sodium Chloride (Normal Saline Flush 0.9%) 10 ml IVP PRN PRN PRN Reason: NEEDED PER PROVIDER ORDERS Home Medications: hydroCHLOROthiazide [Hydrodiuril] 12.5 mg PO DAILY 08/07/16 Acetaminophen [Tylenol] 650 mg PO PRN PRN 12/21/18 Aspirin [Aspirin EC] 81 mg PO DAILY 12/21/18 Atorvastatin Calcium 40 mg PO DAILY 12/21/18 Escitalopram [Lexapro] 20 mg PO DAILY 12/21/18 Latanoprost/Pf [Latanoprost 0.005% Eye Drop] 1 drops EACHEYE QPM 12/21/18 Melatonin/Pyridoxine [Melatonin 5 mg Tablet] 5 mg PO DAILY 12/21/18 Polyethylene Glycol 1450 8.5 gm PO DAILY 12/21/18 QUEtiapine [SEROquel] 25 mg PO QPM 12/21/18 Objective - Vital Signs/Intake & Output Vital Signs: Vital Signs x48h Temp Pulse Resp BP Pulse Ox 12/24/18 07:46 36.2 C L 99 16 145/89 H 98 Intake & Output: Intake & Output 12/21/18 12/22/18 12/23/18 12/24/18 23:59 23:59 23:59 23:59 Intake Total 245 2197.333 3538.333 1988.333 Output Total 450 1870 1650 Balance 245 5481.079 2610.333 338.333 - Objective General Appearance: positive: No acute distress, Alert, Other (Laying in bed. Appears comfortable) Eyes Bilateral: positive: Normal inspection, PERRL, EOMI ENT: positive: ENT inspection nml, Pharynx nml, No signs of dehydration Neck: positive: Nml inspection, Thyroid nml Respiratory: positive: Chest non-tender, No respiratory distress, Breath sounds nml. negative: Wheezes, Rales, Rhonchi Cardiovascular: positive: Regular rate & rhythm, No murmur, No gallop Peripheral Pulses: 2+ Dorsalis pedis (R), 2+ Dorsalis pedis (L) Abdomen: positive: Non-tender, No organomegaly, Nml bowel sounds, No distention. negative: Tenderness, Guarding, Rebound Skin: positive: Warm, Dry Extremities: positive: Non-tender, No pedal edema, Other (Right leg in immobilizer. Right leg dressing c/d/i.) Neurologic/Psychiatric: positive: Other (unable to determine orientation status. Does not follow commands. Will look at provider when spoken to.) - Lab Results Fish Bones: 12/24/18 04:45 12/24/18 04:45 Other Labs: Lab Results x24hrs 12/24/18 12/24/18 12/24/18 Range/Units 04:45 04:45 04:45 WBC 4.6 L (4.8-10.8) x10^3/uL RBC 2.95 L (4.20-5.40) 10^6/uL Hgb 8.6 L (12.0-16.0) g/dL Hct 26.5 L (37.0-47.0) % MCV 90.0 (81.0-99.0) fL MCH 29.3 (27.0-31.0) pg MCHC 32.6 (32.0-36.0) g/dL RDW 14.2 (12.0-15.0) % Plt Count 107 L (130-450) 10^3/uL MPV 8.9 (7.9-10.8) fL Neut # (Auto) 3.2 (1.5-6.6) 10^3/uL Lymph # (Auto) 0.9 L (1.5-3.5) 10^3/uL [place] # (Auto) 0.4 (0.0-1.0) 10^3/uL Eos # (Auto) 0.2 (0.0-0.7) 10^3/uL Baso # (Auto) 0.0 (0.0-0.1) 10^3/uL Absolute Nucleated RBC 0.00 x10^3/uL Nucleated RBC % 0.1 /100WBC Sodium 140 (135-145) mmol/L Potassium 3.4 L (3.5-5.0) mmol/L Chloride 108 (101-111) mmol/L Carbon Dioxide 26 (21-32) mmol/L Anion Gap 6.0 (6-13) BUN 11 (6-20) mg/dL Creatinine 0.7 (0.4-1.0) mg/dL Estimated GFR (MDRD) 99 (>89) Glucose 97 (70-100) mg/dL Calcium 8.2 L (8.5-10.3) mg/dL Magnesium 2.1 (1.7-2.8) mg/dL ABX Reporting Has patient been on IV antibiotics over the past 48 hours?: Yes Assessment/Plan - Problem List (1) Femoral neck fracture Impression: s/p closed reduction and multiple cannulated screw fixation of right hip fracture with Dr. Valeriano Aguilar on 12/22/2018. Plan: continue pain control continue PT/OT remove idckens per protocol, when meets criteria decrease IVF today, plan to d/c later today vs tomorrow DVT prophylaxis after care per orthopedic surgery INSTRUCTOR LOOPING working on placement at SNF for rehab f/u CBC tomorrow Qualifiers: Encounter type: initial encounter Fracture type: closed Laterality: right Qualified Code(s): S72.001A - Fracture of unspecified part of neck of right femur, initial encounter for closed fracture (2) Dementia Impression: pt has hx of advanced dementia. Plan: support pt 1:1 feeding aspiration precautions (3) HTN (hypertension) Impression: stable Plan: continue home medications (4) Hyperlipidemia Impression: stable Plan: continue home lipitor (5) Anxiety Impression: stable Plan: continue home medications (6) Left basilar airspace disease: Impression: pt had elevated temperature to 37.6C, was diaphoretic, reduced WBC on 12/22/2018. UA was negative. CXR with minor left basilar atelectasis or scarring. Blood cultures have been no growth to date. She was started on ceftriaxone 12/22/2018. She has remained afebrile without an elevated WBC Plan: discontinue ceftriaxone today monitor temperature (7) Hypokalemia Impression: K 3.4 Plan: replace with 40 mEq KCL recheck potassium tomorrow
--- NOTE | 2018-12-24 12:51 | PROVIDER PROGRESS NOTE ---
Subjective - Prog Note Date Prog Note Date: 12/24/18 Prog Note Time: 12:49 - Subjective Pt reports feeling: Improved (No complaints) Objective - Vital Signs/Intake & Output Vital Signs: Vital Signs x48h Temp Pulse Resp BP Pulse Ox 12/24/18 07:46 36.2 C L 99 16 145/89 H 98 Intake & Output: Intake & Output 12/21/18 12/22/18 12/23/18 12/24/18 23:59 23:59 23:59 23:59 Intake Total 245 2197.333 3538.333 2088.333 Output Total 450 1870 1650 Balance 245 6710.644 5446.333 438.333 - Lab Results Fish Bones: 12/24/18 04:45 12/24/18 04:45 Other Labs: Lab Results x24hrs 12/24/18 12/24/18 12/24/18 Range/Units 04:45 04:45 04:45 WBC 4.6 L (4.8-10.8) x10^3/uL RBC 2.95 L (4.20-5.40) 10^6/uL Hgb 8.6 L (12.0-16.0) g/dL Hct 26.5 L (37.0-47.0) % MCV 90.0 (81.0-99.0) fL MCH 29.3 (27.0-31.0) pg MCHC 32.6 (32.0-36.0) g/dL RDW 14.2 (12.0-15.0) % Plt Count 107 L (130-450) 10^3/uL MPV 8.9 (7.9-10.8) fL Neut # (Auto) 3.2 (1.5-6.6) 10^3/uL Lymph # (Auto) 0.9 L (1.5-3.5) 10^3/uL [place] # (Auto) 0.4 (0.0-1.0) 10^3/uL Eos # (Auto) 0.2 (0.0-0.7) 10^3/uL Baso # (Auto) 0.0 (0.0-0.1) 10^3/uL Absolute Nucleated RBC 0.00 x10^3/uL Nucleated RBC % 0.1 /100WBC Sodium 140 (135-145) mmol/L Potassium 3.4 L (3.5-5.0) mmol/L Chloride 108 (101-111) mmol/L Carbon Dioxide 26 (21-32) mmol/L Anion Gap 6.0 (6-13) BUN 11 (6-20) mg/dL Creatinine 0.7 (0.4-1.0) mg/dL Estimated GFR (MDRD) 99 (>89) Glucose 97 (70-100) mg/dL Calcium 8.2 L (8.5-10.3) mg/dL Magnesium 2.1 (1.7-2.8) mg/dL - Other Results/Comments Other Results/Comments: EXAM: Dressing intact. Moving hip with mild pain. Up in chair without pain. N/V ok distally Sepsis Event Note (H) - Evaluation Current Stage of Sepsis: Ruled out Assessment/Plan - Problem List (1) Femoral neck fracture Impression: Satis post op PLAN: Can go to SNF> Continue lovenox x 2 weeks. Continue PT - walker ambulate - WBAT on right. Follow up in orthopedic clinic in 2 weeks for alexandra out and new XR. Qualifiers: Encounter type: initial encounter Fracture type: closed Laterality: right Qualified Code(s): S72.001A - Fracture of unspecified part of neck of right femur, initial encounter for closed fracture
[2018-12-24] MEDS: MULTIVITAMIN W/MINERALS TABLET PO SCH (15:02)
[2018-12-24] MEDS: FERROUS SULFATE 325 MG TABLET PO SCH (17:00)
[2018-12-24] MEDS: MORPHINE 2 MG/ML CARPUJECT IVP PRN (18:55)
[2018-12-24] MEDS: LATANOPROST 0.005% OPHTH DROPS EACHEYE SCH (20:52)
[2018-12-24] MEDS: QUEtiapine 25 MG TABLET PO SCH (20:52)
[2018-12-24] MEDS: MELATONIN 5 MG PO SCH (20:53)
[2018-12-25] MEDS: MORPHINE 2 MG/ML CARPUJECT IVP PRN (03:35)
[2018-12-25] MEDS: SODIUM CHLORIDE FLUSH 0.9% 10 ML SYRINGE IVP SCH ×3 (03:36→17:58)
[2018-12-25 05:23] LABS: BASOPHILS % (AUTO) 0.6 %; EOSINOPHILS # (AUTO) 0.2 10^3/uL (0.0-0.7); EOSINOPHILS % (AUTO) 5.9 %; HGB - HEMOGLOBIN 8.1 g/dL (12.0-16.0); LYMPHOCYTES # (AUTO) 1.3 10^3/uL (1.5-3.5); LYMPHOCYTES % (AUTO) 33.2 %; MEAN CORPUSCULAR HEMOGLOBIN 29.3 pg (27.0-31.0); MEAN CORPUSCULAR HGB CONC 32.9 g/dL (32.0-36.0); MEAN CORPUSCULAR VOLUME 88.8 fL (81.0-99.0); MEAN PLATELET VOLUME 8.6 fL (7.9-10.8); MONOCYTES # (AUTO) 0.4 10^3/uL (0.0-1.0); MONOCYTES % (AUTO) 9.1 %; NEUTROPHILS % (AUTO) 51.2 %; PLT - PLATELET COUNT 116 10^3/uL (130-450); RED BLOOD COUNT 2.77 10^6/uL (4.20-5.40); RED CELL DISTRIBUTION WIDTH 14.2 % (12.0-15.0); WHITE BLOOD COUNT 3.9 x10^3/uL (4.8-10.8)
[2018-12-25 05:24] LABS: CALCIUM 8.4 mg/dL (8.5-10.3); CREATININE 0.6 mg/dL (0.4-1.0)
[2018-12-25] MEDS: ENOXAPARIN 40 MG/0.4 ML SYRINGE SUBQ SCH (08:24)
[2018-12-25] MEDS: ESCITALOPRAM 10 MG TABLET PO SCH (08:24)
[2018-12-25] MEDS: hydroCHLOROthiazide 12.5 MG CAPSULE PO SCH (08:24)
[2018-12-25] MEDS: ATORVASTATIN 40 MG TABLET PO SCH (08:24)
[2018-12-25] MEDS: ASPIRIN EC 81 MG TABLET PO SCH (08:24)
[2018-12-25] MEDS: MULTIVITAMIN W/MINERALS TABLET PO SCH (08:24)
[2018-12-25] MEDS: CHOLECALCIFEROL 400 UNIT TABLET PO SCH (08:24)
[2018-12-25] MEDS: DOCUSATE SODIUM 250 MG CAPSULE PO SCH (08:24)
[2018-12-25] MEDS: ACETAMINOPHEN 325 MG TABLET PO PRN (08:24)
[2018-12-25] MEDS: CALCIUM CITRATE 250 MG TABLET PO SCH (08:24)
[2018-12-25] MEDS: FERROUS SULFATE 325 MG TABLET PO SCH (08:24)
[2018-12-25] MEDS: FAMOTIDINE 20 MG TABLET PO SCH ×2 (08:24→20:38)
[2018-12-25] MEDS: POLYETHYLENE GLYCOL 3350 17 GM PACKET PO SCH (08:25)
[2018-12-25] MEDS: SENNA 8.6 MG TABLET PO SCH (08:25)
[2018-12-25 08:36] LABS: % IRON SATURATION 10 % (20-50); IRON 17 ug/dL (28-170); TOTAL IRON BINDING CAPACITY 174 ug/dL (250-450); TRANSFERRIN 124 mg/dL (192-382)
--- NOTE | 2018-12-25 11:32 | PROVIDER PROGRESS NOTE ---
Subjective - Prog Note Date Prog Note Date: 12/25/18 Prog Note Time: 11:29 - Subjective Pt reports feeling: Improved Objective - Vital Signs/Intake & Output Vital Signs: Vital Signs x48h Temp Pulse Resp BP Pulse Ox 12/25/18 08:00 36.8 C 74 16 157/89 H 96 12/25/18 05:13 36.9 C 78 14 98 Intake & Output: Intake & Output 12/22/18 12/23/18 12/24/18 12/25/18 23:59 23:59 23:59 23:59 Intake Total 2197.333 3538.333 2812.500 1200 Output Total 450 1870 2800 Balance 0314.581 6417.333 12.500 1200 - Lab Results Fish Bones: 12/25/18 05:01 12/25/18 05:01 Other Labs: Lab Results x24hrs 12/25/18 12/25/18 12/25/18 Range/Units 05:01 05:01 05:00 WBC 3.9 L (4.8-10.8) x10^3/uL RBC 2.77 L (4.20-5.40) 10^6/uL Hgb 8.1 L (12.0-16.0) g/dL Hct 24.6 L (37.0-47.0) % MCV 88.8 (81.0-99.0) fL MCH 29.3 (27.0-31.0) pg MCHC 32.9 (32.0-36.0) g/dL RDW 14.2 (12.0-15.0) % Plt Count 116 L (130-450) 10^3/uL MPV 8.6 (7.9-10.8) fL Neut # (Auto) 2.0 (1.5-6.6) 10^3/uL Lymph # (Auto) 1.3 L (1.5-3.5) 10^3/uL [place] # (Auto) 0.4 (0.0-1.0) 10^3/uL Eos # (Auto) 0.2 (0.0-0.7) 10^3/uL Baso # (Auto) 0.0 (0.0-0.1) 10^3/uL Absolute Nucleated RBC 0.00 x10^3/uL Nucleated RBC % 0.0 /100WBC Sodium 136 (135-145) mmol/L Potassium 3.5 (3.5-5.0) mmol/L Chloride 106 (101-111) mmol/L Carbon Dioxide 25 (21-32) mmol/L Anion Gap 5.0 L (6-13) BUN 8 (6-20) mg/dL Creatinine 0.6 (0.4-1.0) mg/dL Estimated GFR (MDRD) 119 (>89) Glucose 89 (70-100) mg/dL Calcium 8.4 L (8.5-10.3) mg/dL Iron 17 L (28-170) ug/dL TIBC 174 L (250-450) ug/dL % Saturation 10 L (20-50) % Transferrin 124 L (192-382) mg/dL - Other Results/Comments Other Results/Comments: EXAM: Dressing intact. Sitting up in bed. Moves toes well. Sepsis Event Note (H) - Evaluation Current Stage of Sepsis: Ruled out Assessment/Plan - Problem List (1) Femoral neck fracture Impression: Satis post op PLAN: No change in plans. When transferred to SNF< follow up in orthopedic clinic in 2 weeks for alexandra out and new XR> Continue PT for walker ambulate - WBAT on right. Lovenox x 2 weeks. Qualifiers: Encounter type: initial encounter Fracture type: closed Laterality: right Qualified Code(s): S72.001A - Fracture of unspecified part of neck of right femur, initial encounter for closed fracture
[2018-12-25] MEDS: FERROUS GLUCONATE 324 MG TABLET PO SCH (12:05)
--- NOTE | 2018-12-25 14:41 | PROVIDER PROGRESS NOTE ---
Subjective - Prog Note Date Prog Note Date: 12/25/18 Prog Note Time: 08:00 - Subjective Subjective: Odalis has been removed H&H 8.11/19 platelets 116 she received morning earlier this morning and is lethargic during examination afebrile Current Medications - Current Medications Current Medications: Active Medications Acetaminophen (Tylenol) 650 mg PO Q4HR PRN PRN Reason: Pain 1 to 4 Last Admin: 12/25/18 08:24 Dose: 650 mg Acetaminophen (Tylenol) 650 - 975 mg PO Q4HR PRN PRN Reason: PAIN Aspirin (Ecotrin) 81 mg PO DAILY [facility] Last Admin: 12/25/18 08:24 Dose: 81 mg Atorvastatin Calcium (Lipitor) 40 mg PO DAILY [facility] Last Admin: 12/25/18 08:24 Dose: 40 mg Calcium Citrate () 250 mg PO DAILY [facility] Last Admin: 12/25/18 08:24 Dose: 250 mg Cholecalciferol (Vitamin D3) 800 unit PO DAILY [facility] Last Admin: 12/25/18 08:24 Dose: 800 unit Docusate Sodium (Colace 250mg Capsule) 250 - 500 mg PO DAILY [facility] Last Admin: 12/25/18 08:24 Dose: Not Given Enoxaparin Sodium (Lovenox) 40 mg SUBQ DAILY [facility] Last Admin: 12/25/18 08:24 Dose: 40 mg Escitalopram Oxalate (Lexapro) 20 mg PO DAILY [facility] Last Admin: 12/25/18 08:24 Dose: 20 mg Famotidine (Pepcid) 20 mg PO BID [facility] Last Admin: 12/25/18 08:24 Dose: 20 mg Ferrous Gluconate (Fergon) 324 mg PO DAILYWM [facility] Last Admin: 12/25/18 12:05 Dose: 324 mg Ferrous Sulfate (Feosol) 325 mg PO DAILYWM [facility] Last Admin: 12/25/18 08:24 Dose: 325 mg Hydrochlorothiazide (Hydrodiuril) 12.5 mg PO DAILY [facility] Last Admin: 12/25/18 08:24 Dose: 12.5 mg Acetaminophen (Ofirmev) 100 mls @ 400 mls/hr IV Q6HR PRN PRN Reason: PAIN Last Infusion: 12/23/18 16:39 Dose: Infused Latanoprost (Xalatan Ophth Drops) 1 drops EACHEYE QPM [facility] Last Admin: 12/24/18 20:52 Dose: 1 drops Multivitamins/Minerals (Theragran M) 1 tab PO DAILYWM [facility] Last Admin: 12/25/18 08:24 Dose: 1 tab Ondansetron HCl (Zofran Inj) 4 mg IVP Q6HR PRN PRN Reason: Nausea / Vomiting Oxycodone HCl (Roxicodone) 5 mg PO Q4HR PRN PRN Reason: PAIN Last Admin: 12/23/18 10:04 Dose: 5 mg Patient Own Med ( Melatonin 5 Mg Tablet) 1 each PO QPM [facility] Last Admin: 12/24/18 20:53 Dose: Not Given Polyethylene Glycol (Miralax) 17 gm PO DAILY [facility] Last Admin: 12/25/18 08:25 Dose: Not Given Prochlorperazine Edisylate (Compazine Inj) 10 mg IVP Q6HR PRN PRN Reason: Nausea / Vomiting Quetiapine Fumarate (Seroquel) 25 mg PO QPM [facility] Last Admin: 12/24/18 20:52 Dose: 25 mg Senna (Senokot) 8.6 - 17.2 mg PO DAILY [facility] Last Admin: 12/25/18 08:25 Dose: Not Given Sodium Chloride (Normal Saline Flush 0.9%) 10 ml IVP 0100,0900,1700 [facility] Last Admin: 12/25/18 08:25 Dose: 10 ml Sodium Chloride (Normal Saline Flush 0.9%) 10 ml IVP PRN PRN PRN Reason: NEEDED PER PROVIDER ORDERS Home Medications: hydroCHLOROthiazide [Hydrodiuril] 12.5 mg PO DAILY 08/07/16 Acetaminophen [Tylenol] 650 mg PO PRN PRN 12/21/18 Aspirin [Aspirin EC] 81 mg PO DAILY 12/21/18 Atorvastatin Calcium 40 mg PO DAILY 12/21/18 Escitalopram [Lexapro] 20 mg PO DAILY 12/21/18 Latanoprost/Pf [Latanoprost 0.005% Eye Drop] 1 drops EACHEYE QPM 12/21/18 Melatonin/Pyridoxine [Melatonin 5 mg Tablet] 5 mg PO DAILY 12/21/18 Polyethylene Glycol 1450 8.5 gm PO DAILY 12/21/18 QUEtiapine [SEROquel] 25 mg PO QPM 12/21/18 Objective - Vital Signs/Intake & Output Reviewed Vital Signs: Yes Vital Signs: Vital Signs x48h Temp Pulse Resp BP Pulse Ox 12/25/18 13:33 36.4 C L 77 20 106/69 96 12/25/18 08:00 36.8 C 74 16 157/89 H 96 Intake & Output: Intake & Output 12/22/18 12/23/18 12/24/18 12/25/18 23:59 23:59 23:59 23:59 Intake Total 2197.333 3538.333 2812.500 1500 Output Total 450 1870 2800 Balance 8635.566 8453.333 12.500 1500 - Objective General Appearance: positive: No acute distress, Lethargic (she does not open her eyes but responded to cold hands touching her arm) Eyes Bilateral: positive: Normal inspection, PERRL, EOMI ENT: positive: ENT inspection nml, Pharynx nml, No signs of dehydration Neck: positive: Nml inspection, Trachea midline Respiratory: positive: Chest non-tender, No respiratory distress, Breath sounds nml. negative: Wheezes, Rales, Rhonchi Cardiovascular: positive: Regular rate & rhythm, No murmur, No gallop Peripheral Pulses: 2+ Dorsalis pedis (R), 2+ Dorsalis pedis (L) Abdomen: positive: Non-tender, No organomegaly, Nml bowel sounds, No distention Skin: positive: Warm, Dry Extremities: positive: No pedal edema, Other (right hip surgical dressing c/d/i without strikethrough on dressing) Neurologic/Psychiatric: positive: Weakness, Other (unable to determine orientation. patient does not follow commands) - Lab Results Fish Bones: 12/25/18 05:01 12/25/18 05:01 Other Labs: Lab Results x24hrs 12/25/18 12/25/18 12/25/18 Range/Units 05:01 05:01 05:00 WBC 3.9 L (4.8-10.8) x10^3/uL RBC 2.77 L (4.20-5.40) 10^6/uL Hgb 8.1 L (12.0-16.0) g/dL Hct 24.6 L (37.0-47.0) % MCV 88.8 (81.0-99.0) fL MCH 29.3 (27.0-31.0) pg MCHC 32.9 (32.0-36.0) g/dL RDW 14.2 (12.0-15.0) % Plt Count 116 L (130-450) 10^3/uL MPV 8.6 (7.9-10.8) fL Neut # (Auto) 2.0 (1.5-6.6) 10^3/uL Lymph # (Auto) 1.3 L (1.5-3.5) 10^3/uL [place] # (Auto) 0.4 (0.0-1.0) 10^3/uL Eos # (Auto) 0.2 (0.0-0.7) 10^3/uL Baso # (Auto) 0.0 (0.0-0.1) 10^3/uL Absolute Nucleated RBC 0.00 x10^3/uL Nucleated RBC % 0.0 /100WBC Sodium 136 (135-145) mmol/L Potassium 3.5 (3.5-5.0) mmol/L Chloride 106 (101-111) mmol/L Carbon Dioxide 25 (21-32) mmol/L Anion Gap 5.0 L (6-13) BUN 8 (6-20) mg/dL Creatinine 0.6 (0.4-1.0) mg/dL Estimated GFR (MDRD) 119 (>89) Glucose 89 (70-100) mg/dL Calcium 8.4 L (8.5-10.3) mg/dL Iron 17 L (28-170) ug/dL TIBC 174 L (250-450) ug/dL % Saturation 10 L (20-50) % Transferrin 124 L (192-382) mg/dL Sepsis Event Note (H) - Evaluation Current Stage of Sepsis: Ruled out Assessment/Plan - Problem List (1) Femoral neck fracture Impression: s/p closed reduction and multiple cannulated screw fixation of right hip fracture with Dr. Valeriano Aguilar on 12/22/2018. 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 Plan: continue supportive care 1:1 feeding aspiration precautions (3) HTN (hypertension) Impression: stable Plan: continue home medications (4) Hyperlipidemia Impression: stable Plan: continue home lipitor (5) Anxiety Impression: stable Plan: continue home medications (6) Left basilar airspace disease: Impression: pt had elevated temperature to 37.6C, was diaphoretic, reduced WBC on 12/22/2018. UA was negative. CXR with minor left basilar atelectasis or scarring. Blood cultures have been no growth to date. She was started on ceftriaxone 12/22/2018. She has remained afebrile without an elevated WBC. Ceftriaxone was discontinued on 12/24/2018 Plan: monitor temperature (7) Acute anemia with iron deficiency anemia: Impression: H&H continues to trend down 8.1/25 today. No signs or symptoms of bleeding. Iron level low Plan: add daily ferrous gluconate f/u CBC tomorrow (8) Hypokalemia, resolved
[2018-12-25] MEDS: MELATONIN 5 MG PO SCH (20:15)
[2018-12-25] MEDS: QUEtiapine 25 MG TABLET PO SCH (20:38)
[2018-12-25] MEDS: LATANOPROST 0.005% OPHTH DROPS EACHEYE SCH (20:39)
[2018-12-26] MEDS: SODIUM CHLORIDE FLUSH 0.9% 10 ML SYRINGE IVP SCH ×3 (00:26→17:45)
[2018-12-26] MEDS: ACETAMINOPHEN 325 MG TABLET PO PRN ×2 (05:21→10:24)
[2018-12-26 05:47] LABS: BASOPHILS % (AUTO) 0.8 %; EOSINOPHILS # (AUTO) 0.2 10^3/uL (0.0-0.7); EOSINOPHILS % (AUTO) 5.4 %; HGB - HEMOGLOBIN 8.6 g/dL (12.0-16.0); LYMPHOCYTES # (AUTO) 1.1 10^3/uL (1.5-3.5); LYMPHOCYTES % (AUTO) 29.7 %; MEAN CORPUSCULAR HEMOGLOBIN 29.6 pg (27.0-31.0); MEAN CORPUSCULAR HGB CONC 33.4 g/dL (32.0-36.0); MEAN CORPUSCULAR VOLUME 88.4 fL (81.0-99.0); MEAN PLATELET VOLUME 8.8 fL (7.9-10.8); MONOCYTES # (AUTO) 0.3 10^3/uL (0.0-1.0); MONOCYTES % (AUTO) 8.4 %; NEUTROPHILS % (AUTO) 55.7 %; PLT - PLATELET COUNT 143 10^3/uL (130-450); RED BLOOD COUNT 2.89 10^6/uL (4.20-5.40); RED CELL DISTRIBUTION WIDTH 14.2 % (12.0-15.0); WHITE BLOOD COUNT 3.6 x10^3/uL (4.8-10.8)
[2018-12-26 06:07] LABS: CALCIUM 8.6 mg/dL (8.5-10.3); CREATININE 0.7 mg/dL (0.4-1.0)
[2018-12-26] MEDS: ENOXAPARIN 40 MG/0.4 ML SYRINGE SUBQ SCH (08:41)
[2018-12-26] MEDS: ESCITALOPRAM 10 MG TABLET PO SCH (08:42)
[2018-12-26] MEDS: MULTIVITAMIN W/MINERALS TABLET PO SCH (08:42)
[2018-12-26] MEDS: FAMOTIDINE 20 MG TABLET PO SCH ×2 (08:42→20:08)
[2018-12-26] MEDS: CALCIUM CITRATE 250 MG TABLET PO SCH (08:42)
[2018-12-26] MEDS: FERROUS SULFATE 325 MG TABLET PO SCH (08:43)
[2018-12-26] MEDS: ATORVASTATIN 40 MG TABLET PO SCH (08:43)
[2018-12-26] MEDS: FERROUS GLUCONATE 324 MG TABLET PO SCH (08:43)
[2018-12-26] MEDS: ASPIRIN EC 81 MG TABLET PO SCH (08:43)
[2018-12-26] MEDS: CHOLECALCIFEROL 400 UNIT TABLET PO SCH (08:43)
[2018-12-26] MEDS: POLYETHYLENE GLYCOL 3350 17 GM PACKET PO SCH (08:43)
[2018-12-26] MEDS: SENNA 8.6 MG TABLET PO SCH (08:44)
[2018-12-26] MEDS: DOCUSATE SODIUM 250 MG CAPSULE PO SCH (08:44)
--- NOTE | 2018-12-26 10:37 | PROVIDER PROGRESS NOTE ---
Subjective - Prog Note Date Prog Note Date: 12/26/18 Prog Note Time: 10:36 - Subjective Pt reports feeling: Improved Objective - Vital Signs/Intake & Output Vital Signs: Vital Signs x48h Temp Pulse Resp BP 12/26/18 07:58 37.1 C 94 16 123/79 Intake & Output: Intake & Output 12/23/18 12/24/18 12/25/18 12/26/18 23:59 23:59 23:59 23:59 Intake Total 3538.333 2812.500 1950 330 Output Total 1870 2800 Balance 1668.333 12.500 1950 330 - Lab Results Fish Bones: 12/26/18 05:11 12/26/18 05:11 Other Labs: Lab Results x24hrs 12/26/18 12/26/18 12/22/18 Range/Units 05:11 05:11 04:30 WBC 3.6 L (4.8-10.8) x10^3/uL RBC 2.89 L (4.20-5.40) 10^6/uL Hgb 8.6 L (12.0-16.0) g/dL Hct 25.6 L (37.0-47.0) % MCV 88.4 (81.0-99.0) fL MCH 29.6 (27.0-31.0) pg MCHC 33.4 (32.0-36.0) g/dL RDW 14.2 (12.0-15.0) % Plt Count 143 (130-450) 10^3/uL MPV 8.8 (7.9-10.8) fL Neut # (Auto) 2.0 (1.5-6.6) 10^3/uL Lymph # (Auto) 1.1 L (1.5-3.5) 10^3/uL [place] # (Auto) 0.3 (0.0-1.0) 10^3/uL Eos # (Auto) 0.2 (0.0-0.7) 10^3/uL Baso # (Auto) 0.0 (0.0-0.1) 10^3/uL Absolute Nucleated RBC 0.00 x10^3/uL Nucleated RBC % 0.1 /100WBC Sodium 135 (135-145) mmol/L Potassium 3.5 (3.5-5.0) mmol/L Chloride 102 (101-111) mmol/L Carbon Dioxide 26 (21-32) mmol/L Anion Gap 7.0 (6-13) BUN 10 (6-20) mg/dL Creatinine 0.7 (0.4-1.0) mg/dL Estimated GFR (MDRD) 99 (>89) Glucose 86 (70-100) mg/dL Calcium 8.6 (8.5-10.3) mg/dL Vit D 1,25-Dihyd Total 36 (18-72) pg/mL 1,25 Dihydroxy Vit D2 <8 pg/mL 1,25 Dihydroxy Vit D3 36 pg/mL - Other Results/Comments Other Results/Comments: EXAM: No change Sepsis Event Note (H) - Evaluation Current Stage of Sepsis: Ruled out Assessment/Plan - Problem List (1) Femoral neck fracture Impression: Stable post op PLAN: To SNF when available. No change in post op plan. Qualifiers: Encounter type: initial encounter Fracture type: closed Laterality: right Qualified Code(s): S72.001A - Fracture of unspecified part of neck of right femur, initial encounter for closed fracture
--- NOTE | 2018-12-26 13:51 | PROVIDER PROGRESS NOTE ---
Subjective - Prog Note Date Prog Note Date: 12/26/18 Prog Note Time: 13:00 - Subjective Subjective: Patient sleeping this morning. 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 Previous facility will not accept patient back without a SNF stay Current Medications - Current Medications Current Medications: Acetaminophen (Tylenol) 650 mg PO Q4HR PRN PRN Reason: Pain 1 to 4 Last Admin: 12/26/18 10:24 Dose: 650 mg Acetaminophen (Tylenol) 650 - 975 mg PO Q4HR PRN PRN Reason: PAIN Aspirin (Ecotrin) 81 mg PO DAILY [facility] Last Admin: 12/26/18 08:43 Dose: 81 mg Atorvastatin Calcium (Lipitor) 40 mg PO DAILY [facility] Last Admin: 12/26/18 08:43 Dose: 40 mg Calcium Citrate () 250 mg PO DAILY [facility] Last Admin: 12/26/18 08:42 Dose: 250 mg Cholecalciferol (Vitamin D3) 800 unit PO DAILY [facility] Last Admin: 12/26/18 08:43 Dose: 800 unit Docusate Sodium (Colace 250mg Capsule) 250 - 500 mg PO DAILY [facility] Last Admin: 12/26/18 08:44 Dose: Not Given Enoxaparin Sodium (Lovenox) 40 mg SUBQ DAILY [facility] Last Admin: 12/26/18 08:41 Dose: 40 mg Escitalopram Oxalate (Lexapro) 20 mg PO DAILY [facility] Last Admin: 12/26/18 08:42 Dose: 20 mg Famotidine (Pepcid) 20 mg PO BID [facility] Last Admin: 12/26/18 08:42 Dose: 20 mg Ferrous Gluconate (Fergon) 324 mg PO DAILYWM [facility] Last Admin: 12/26/18 08:43 Dose: 324 mg Ferrous Sulfate (Feosol) 325 mg PO DAILYWM [facility] Last Admin: 12/26/18 08:43 Dose: 325 mg Acetaminophen (Ofirmev) 100 mls @ 400 mls/hr IV Q6HR PRN PRN Reason: PAIN Last Infusion: 12/23/18 16:39 Dose: Infused Latanoprost (Xalatan Ophth Drops) 1 drops EACHEYE QPM [facility] Last Admin: 12/25/18 20:39 Dose: 1 drops Multivitamins/Minerals (Theragran M) 1 tab PO DAILYWM [facility] Last Admin: 12/26/18 08:42 Dose: 1 tab Ondansetron HCl (Zofran Inj) 4 mg IVP Q6HR PRN PRN Reason: Nausea / Vomiting Oxycodone HCl (Roxicodone) 5 mg PO Q4HR PRN PRN Reason: PAIN Last Admin: 12/23/18 10:04 Dose: 5 mg Patient Own Med ( Melatonin 5 Mg Tablet) 1 each PO QPM [facility] Last Admin: 12/25/18 20:15 Dose: Not Given Polyethylene Glycol (Miralax) 17 gm PO DAILY [facility] Last Admin: 12/26/18 08:43 Dose: 17 gm Prochlorperazine Edisylate (Compazine Inj) 10 mg IVP Q6HR PRN PRN Reason: Nausea / Vomiting Quetiapine Fumarate (Seroquel) 25 mg PO QPM [facility] Last Admin: 12/25/18 20:38 Dose: 25 mg Senna (Senokot) 8.6 - 17.2 mg PO DAILY [facility] Last Admin: 12/26/18 08:44 Dose: Not Given Sodium Chloride (Normal Saline Flush 0.9%) 10 ml IVP 0100,0900,1700 [facility] Last Admin: 12/26/18 08:45 Dose: 10 ml Sodium Chloride (Normal Saline Flush 0.9%) 10 ml IVP PRN PRN PRN Reason: NEEDED PER PROVIDER ORDERS Home Medications: hydroCHLOROthiazide [Hydrodiuril] 12.5 mg PO DAILY 08/07/16 Acetaminophen [Tylenol] 650 mg PO PRN PRN 12/21/18 Aspirin [Aspirin EC] 81 mg PO DAILY 12/21/18 Atorvastatin Calcium 40 mg PO DAILY 12/21/18 Escitalopram [Lexapro] 20 mg PO DAILY 12/21/18 Latanoprost/Pf [Latanoprost 0.005% Eye Drop] 1 drops EACHEYE QPM 12/21/18 Melatonin/Pyridoxine [Melatonin 5 mg Tablet] 5 mg PO DAILY 12/21/18 Polyethylene Glycol 1450 8.5 gm PO DAILY 12/21/18 QUEtiapine [SEROquel] 25 mg PO QPM 12/21/18 Objective - Vital Signs/Intake & Output Reviewed Vital Signs: Yes Vital Signs: Vital Signs x48h Temp Pulse Resp BP 12/26/18 07:58 37.1 C 94 16 123/79 Intake & Output: Intake & Output 12/23/18 12/24/18 12/25/18 12/26/18 23:59 23:59 23:59 23:59 Intake Total 3538.333 2812.500 1950 450 Output Total 1870 2800 Balance 1668.333 12.500 1950 450 - Objective General Appearance: positive: No acute distress, Alert Eyes Bilateral: positive: Normal inspection, PERRL, EOMI ENT: positive: ENT inspection nml, Pharynx nml, No signs of dehydration Neck: positive: Nml inspection, Trachea midline Respiratory: positive: Chest non-tender, No respiratory distress, Breath sounds nml. negative: Wheezes, Rales, Rhonchi Cardiovascular: positive: Regular rate & rhythm, No murmur, No gallop Peripheral Pulses: 2+ Dorsalis pedis (R), 2+ Dorsalis pedis (L) Abdomen: positive: Non-tender, No organomegaly, Nml bowel sounds, No distention Skin: positive: Warm Extremities: positive: Non-tender, Nml appearance, No pedal edema, Other (right hip dressing with small spot of dried sanguineous drainage present) Neurologic/Psychiatric: positive: Other (unable to assess orientation) - Lab Results Fish Bones: 12/26/18 05:11 12/26/18 05:11 Other Labs: Lab Results x24hrs 12/26/18 12/26/18 12/22/18 Range/Units 05:11 05:11 04:30 WBC 3.6 L (4.8-10.8) x10^3/uL RBC 2.89 L (4.20-5.40) 10^6/uL Hgb 8.6 L (12.0-16.0) g/dL Hct 25.6 L (37.0-47.0) % MCV 88.4 (81.0-99.0) fL MCH 29.6 (27.0-31.0) pg MCHC 33.4 (32.0-36.0) g/dL RDW 14.2 (12.0-15.0) % Plt Count 143 (130-450) 10^3/uL MPV 8.8 (7.9-10.8) fL Neut # (Auto) 2.0 (1.5-6.6) 10^3/uL Lymph # (Auto) 1.1 L (1.5-3.5) 10^3/uL [place] # (Auto) 0.3 (0.0-1.0) 10^3/uL Eos # (Auto) 0.2 (0.0-0.7) 10^3/uL Baso # (Auto) 0.0 (0.0-0.1) 10^3/uL Absolute Nucleated RBC 0.00 x10^3/uL Nucleated RBC % 0.1 /100WBC Sodium 135 (135-145) mmol/L Potassium 3.5 (3.5-5.0) mmol/L Chloride 102 (101-111) mmol/L Carbon Dioxide 26 (21-32) mmol/L Anion Gap 7.0 (6-13) BUN 10 (6-20) mg/dL Creatinine 0.7 (0.4-1.0) mg/dL Estimated GFR (MDRD) 99 (>89) Glucose 86 (70-100) mg/dL Calcium 8.6 (8.5-10.3) mg/dL Vit D 1,25-Dihyd Total 36 (18-72) pg/mL 1,25 Dihydroxy Vit D2 <8 pg/mL 1,25 Dihydroxy Vit D3 36 pg/mL Assessment/Plan - Problem List (1) Femoral neck fracture Impression: s/p closed reduction and multiple cannulated screw fixation of right hip fracture with Dr. Valeriano Aguilar on 12/22/2018. 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 Plan: continue supportive care 1:1 feeding aspiration precautions (3) HTN (hypertension) Impression: stable Plan: continue home medications (4) Hyperlipidemia Impression: stable Plan: continue home lipitor (5) Anxiety Impression: stable Plan: continue home medications (6) Acute anemia with iron deficiency anemia: Impression: H&H stable 8.6. No signs or symptoms of bleeding. Plan: continue ferrous gluconate (7) Left basilar airspace disease, resolved Impression: pt had elevated temperature to 37.6C, was diaphoretic, reduced WBC on 12/22/2018. UA was negative. CXR with minor left basilar atelectasis or scarring. Blood cultures have been no growth to date. She was started on ceftriaxone 12/22/2018. She has remained afebrile without an elevated WBC. Ceftriaxone was discontinued on 12/24/2018 Plan: monitor temperature (8) Hypokalemia, resolved
[2018-12-26] MEDS: MELATONIN 5 MG PO SCH (17:51)
[2018-12-26] MEDS: QUEtiapine 25 MG TABLET PO SCH (20:07)
[2018-12-26] MEDS: LATANOPROST 0.005% OPHTH DROPS EACHEYE SCH (20:08)
[2018-12-27] MEDS: SODIUM CHLORIDE FLUSH 0.9% 10 ML SYRINGE IVP SCH ×3 (00:04→17:59)
[2018-12-27] MEDS: ACETAMINOPHEN 325 MG TABLET PO PRN (06:03)
[2018-12-27] MEDS: FERROUS SULFATE 325 MG TABLET PO SCH (08:57)
[2018-12-27] MEDS: CALCIUM CITRATE 250 MG TABLET PO SCH (08:57)
[2018-12-27] MEDS: CHOLECALCIFEROL 400 UNIT TABLET PO SCH (08:57)
[2018-12-27] MEDS: ESCITALOPRAM 10 MG TABLET PO SCH (08:57)
[2018-12-27] MEDS: POLYETHYLENE GLYCOL 3350 17 GM PACKET PO SCH (08:57)
[2018-12-27] MEDS: ATORVASTATIN 40 MG TABLET PO SCH (08:57)
[2018-12-27] MEDS: FAMOTIDINE 20 MG TABLET PO SCH ×2 (08:57→21:00)
[2018-12-27] MEDS: FERROUS GLUCONATE 324 MG TABLET PO SCH (08:58)
[2018-12-27] MEDS: ENOXAPARIN 40 MG/0.4 ML SYRINGE SUBQ SCH (08:58)
[2018-12-27] MEDS: ASPIRIN EC 81 MG TABLET PO SCH (08:58)
[2018-12-27] MEDS: DOCUSATE SODIUM 250 MG CAPSULE PO SCH (08:58)
[2018-12-27] MEDS: SENNA 8.6 MG TABLET PO SCH (08:59)
[2018-12-27] MEDS: MULTIVITAMIN W/MINERALS TABLET PO SCH (08:59)
--- NOTE | 2018-12-27 14:15 | PROVIDER PROGRESS NOTE ---
Subjective - Prog Note Date Prog Note Date: 12/27/18 Prog Note Time: 10:30 - Subjective Subjective: Patient is alert, sitting up in the chair Able to state her name IVAN continues to work on placement Current Medications - Current Medications Current Medications: Acetaminophen (Tylenol) 650 mg PO Q4HR PRN PRN Reason: Pain 1 to 4 Last Admin: 12/27/18 06:03 Dose: 650 mg Acetaminophen (Tylenol) 650 - 975 mg PO Q4HR PRN PRN Reason: PAIN Aspirin (Ecotrin) 81 mg PO DAILY [facility] Last Admin: 12/27/18 08:58 Dose: 81 mg Atorvastatin Calcium (Lipitor) 40 mg PO DAILY [facility] Last Admin: 12/27/18 08:57 Dose: 40 mg Calcium Citrate () 250 mg PO DAILY [facility] Last Admin: 12/27/18 08:57 Dose: 250 mg Cholecalciferol (Vitamin D3) 800 unit PO DAILY [facility] Last Admin: 12/27/18 08:57 Dose: 800 unit Docusate Sodium (Colace 250mg Capsule) 250 - 500 mg PO DAILY [facility] Last Admin: 12/27/18 08:58 Dose: 250 mg Enoxaparin Sodium (Lovenox) 40 mg SUBQ DAILY [facility] Last Admin: 12/27/18 08:58 Dose: 40 mg Escitalopram Oxalate (Lexapro) 20 mg PO DAILY [facility] Last Admin: 12/27/18 08:57 Dose: 20 mg Famotidine (Pepcid) 20 mg PO BID [facility] Last Admin: 12/27/18 08:57 Dose: 20 mg Ferrous Gluconate (Fergon) 324 mg PO DAILYWM [facility] Last Admin: 12/27/18 08:58 Dose: 324 mg Acetaminophen (Ofirmev) 100 mls @ 400 mls/hr IV Q6HR PRN PRN Reason: PAIN Last Infusion: 12/23/18 16:39 Dose: Infused Latanoprost (Xalatan Ophth Drops) 1 drops EACHEYE QPM [facility] Last Admin: 12/26/18 20:08 Dose: 1 drops Multivitamins/Minerals (Theragran M) 1 tab PO DAILYWM [facility] Last Admin: 12/27/18 08:59 Dose: 1 tab Ondansetron HCl (Zofran Inj) 4 mg IVP Q6HR PRN PRN Reason: Nausea / Vomiting Oxycodone HCl (Roxicodone) 5 mg PO Q4HR PRN PRN Reason: PAIN Last Admin: 12/23/18 10:04 Dose: 5 mg Patient Own Med ( Melatonin 5 Mg Tablet) 1 each PO QPM [facility] Last Admin: 12/26/18 17:51 Dose: Not Given Polyethylene Glycol (Miralax) 17 gm PO DAILY [facility] Last Admin: 12/27/18 08:57 Dose: 17 gm Prochlorperazine Edisylate (Compazine Inj) 10 mg IVP Q6HR PRN PRN Reason: Nausea / Vomiting Quetiapine Fumarate (Seroquel) 25 mg PO QPM [facility] Last Admin: 12/26/18 20:07 Dose: 25 mg Senna (Senokot) 8.6 - 17.2 mg PO DAILY [facility] Last Admin: 12/27/18 08:59 Dose: 8.6 mg Sodium Chloride (Normal Saline Flush 0.9%) 10 ml IVP 0100,0900,1700 [facility] Last Admin: 12/27/18 08:59 Dose: 10 ml Sodium Chloride (Normal Saline Flush 0.9%) 10 ml IVP PRN PRN PRN Reason: NEEDED PER PROVIDER ORDERS Objective - Vital Signs/Intake & Output Reviewed Vital Signs: Yes Vital Signs: Vital Signs x48h Temp Pulse Resp BP Pulse Ox 12/27/18 08:00 37.3 C 77 20 123/73 97 Intake & Output: Intake & Output 12/24/18 12/25/18 12/26/18 12/27/18 23:59 23:59 23:59 23:59 Intake Total 2812.500 1950 700 400 Output Total 2800 Balance 12.500 1950 700 400 - Objective General Appearance: positive: No acute distress, Alert (sitting up in the chair, pleasant, talkative) Eyes Bilateral: positive: Normal inspection, PERRL, EOMI ENT: positive: ENT inspection nml, Pharynx nml, No signs of dehydration Neck: positive: Nml inspection, Trachea midline Respiratory: positive: Chest non-tender, No respiratory distress, Breath sounds nml Cardiovascular: positive: Regular rate & rhythm, No murmur, No gallop Peripheral Pulses: 2+ Dorsalis pedis (R), 2+ Dorsalis pedis (L) Abdomen: positive: Non-tender, No organomegaly, Nml bowel sounds, No distention Skin: positive: Warm, Dry Extremities: positive: Non-tender, Nml appearance, No pedal edema, Other (right hip dressing with small spot of dried sanguineous drainage present) Neurologic/Psychiatric: positive: Other (alert, able to state her name) - Lab Results Fish Bones: 12/26/18 05:11 12/26/18 05:11 Assessment/Plan - Problem List (1) Femoral neck fracture Impression: s/p closed reduction and multiple cannulated screw fixation of right hip fractu re with Dr. Valeriano Aguilar on 12/22/2018. Plan: continue pain control continue PT/OT DVT prophylaxis with enoxaparin for 2 weeks after surgery per ortho after care per orthopedic surgery she is stable for discharge. PROJECT DIRECTOR is working on disposition Qualifiers: Encounter type: initial encounter Fracture type: closed Laterality: right Qualified Code(s): S72.001A - Fracture of unspecified part of neck of right femur, initial encounter for closed fracture (2) Dementia Impression: pt has hx of advanced dementia. Plan: continue supportive care 1:1 feeding aspiration precautions (3) HTN (hypertension) Impression: stable Plan: continue home medications (4) Hyperlipidemia Impression: stable Plan: continue home lipitor (5) Anxiety Impression: stable Plan: continue home medications (6) Acute anemia with iron deficiency anemia: Impression: H&H stable 8.6. No signs or symptoms of bleeding. Plan: continue ferrous gluconate (7) Left basilar airspace disease, resolved Impression: pt had elevated temperature to 37.6C, was diaphoretic, reduced WBC on 12/22/2018. UA was negative. CXR with minor left basilar atelectasis or scarring. Blood cultures have been no growth to date. She was started on ceftriaxone 12/22/2018. She has remained afebrile without an elevated WBC. Ceftriaxone was discontinued on 12/24/2018 Plan: monitor temperature (8) Hypokalemia, resolved
[2018-12-27] MEDS: LATANOPROST 0.005% OPHTH DROPS EACHEYE SCH (21:00)
[2018-12-27] MEDS: MELATONIN 5 MG PO SCH (21:00)
[2018-12-27] MEDS: QUEtiapine 25 MG TABLET PO SCH (21:00)
[2018-12-27] MEDS: oxyCODONE 5 MG TABLET PO PRN (21:17)
[2018-12-28] MEDS: SODIUM CHLORIDE FLUSH 0.9% 10 ML SYRINGE IVP SCH ×3 (00:24→17:55)
[2018-12-28] MEDS: MULTIVITAMIN W/MINERALS TABLET PO SCH (08:13)
[2018-12-28] MEDS: CHOLECALCIFEROL 400 UNIT TABLET PO SCH (08:13)
[2018-12-28] MEDS: DOCUSATE SODIUM 250 MG CAPSULE PO SCH (08:13)
[2018-12-28] MEDS: ASPIRIN EC 81 MG TABLET PO SCH (08:13)
[2018-12-28] MEDS: CALCIUM CITRATE 250 MG TABLET PO SCH (08:14)
[2018-12-28] MEDS: ATORVASTATIN 40 MG TABLET PO SCH (08:14)
[2018-12-28] MEDS: POLYETHYLENE GLYCOL 3350 17 GM PACKET PO SCH (08:14)
[2018-12-28] MEDS: ESCITALOPRAM 10 MG TABLET PO SCH (08:14)
[2018-12-28] MEDS: FERROUS GLUCONATE 324 MG TABLET PO SCH (08:14)
[2018-12-28] MEDS: FAMOTIDINE 20 MG TABLET PO SCH ×2 (08:14→20:19)
[2018-12-28] MEDS: ENOXAPARIN 40 MG/0.4 ML SYRINGE SUBQ SCH (08:14)
[2018-12-28] MEDS: SENNA 8.6 MG TABLET PO SCH (08:15)
[2018-12-28] MEDS: oxyCODONE 5 MG TABLET PO PRN ×2 (12:19→20:30)
--- NOTE | 2018-12-28 14:24 | PROVIDER PROGRESS NOTE ---
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 to work on placement Current Medications - Current Medications Current Medications: Acetaminophen (Tylenol) 650 mg PO Q4HR PRN PRN Reason: Pain 1 to 4 Last Admin: 12/27/18 06:03 Dose: 650 mg Acetaminophen (Tylenol) 650 - 975 mg PO Q4HR PRN PRN Reason: PAIN Aspirin (Ecotrin) 81 mg PO DAILY [facility] Last Admin: 12/28/18 08:13 Dose: 81 mg Atorvastatin Calcium (Lipitor) 40 mg PO DAILY [facility] Last Admin: 12/28/18 08:14 Dose: 40 mg Calcium Citrate () 250 mg PO DAILY [facility] Last Admin: 12/28/18 08:14 Dose: 250 mg Cholecalciferol (Vitamin D3) 800 unit PO DAILY [facility] Last Admin: 12/28/18 08:13 Dose: 800 unit Docusate Sodium (Colace 250mg Capsule) 250 - 500 mg PO DAILY [facility] Last Admin: 12/28/18 08:13 Dose: 250 mg Enoxaparin Sodium (Lovenox) 40 mg SUBQ DAILY [facility] Last Admin: 12/28/18 08:14 Dose: 40 mg Escitalopram Oxalate (Lexapro) 20 mg PO DAILY [facility] Last Admin: 12/28/18 08:14 Dose: 20 mg Famotidine (Pepcid) 20 mg PO BID [facility] Last Admin: 12/28/18 08:14 Dose: 20 mg Ferrous Gluconate (Fergon) 324 mg PO DAILYWM [facility] Last Admin: 12/28/18 08:14 Dose: 324 mg Acetaminophen (Ofirmev) 100 mls @ 400 mls/hr IV Q6HR PRN PRN Reason: PAIN Last Infusion: 12/23/18 16:39 Dose: Infused Latanoprost (Xalatan Ophth Drops) 1 drops EACHEYE QPM [facility] Last Admin: 12/27/18 21:00 Dose: 1 drops Multivitamins/Minerals (Theragran M) 1 tab PO DAILYWM [facility] Last Admin: 12/28/18 08:13 Dose: 1 tab Ondansetron HCl (Zofran Inj) 4 mg IVP Q6HR PRN PRN Reason: Nausea / Vomiting Oxycodone HCl (Roxicodone) 5 mg PO Q4HR PRN PRN Reason: PAIN Last Admin: 12/28/18 12:19 Dose: 5 mg Patient Own Med ( Melatonin 5 Mg Tablet) 1 each PO QPM [facility] Last Admin: 12/27/18 21:00 Dose: Not Given Polyethylene Glycol (Miralax) 17 gm PO DAILY [facility] Last Admin: 12/28/18 08:14 Dose: 17 gm Prochlorperazine Edisylate (Compazine Inj) 10 mg IVP Q6HR PRN PRN Reason: Nausea / Vomiting Quetiapine Fumarate (Seroquel) 25 mg PO QPM [facility] Last Admin: 12/27/18 21:00 Dose: 25 mg Senna (Senokot) 8.6 - 17.2 mg PO DAILY [facility] Last Admin: 12/28/18 08:15 Dose: 8.6 mg Sodium Chloride (Normal Saline Flush 0.9%) 10 ml IVP 0100,0900,1700 [facility] Last Admin: 12/28/18 08:14 Dose: 10 ml Sodium Chloride (Normal Saline Flush 0.9%) 10 ml IVP PRN PRN PRN Reason: NEEDED PER PROVIDER ORDERS Objective - Vital Signs/Intake & Output Reviewed Vital Signs: Yes Vital Signs: Vital Signs x48h Temp Pulse Resp BP Pulse Ox 12/28/18 08:00 37.3 C 102 H 20 113/75 97 Intake & Output: Intake & Output 12/25/18 12/26/18 12/27/18 12/28/18 23:59 23:59 23:59 23:59 Intake Total 1950 700 650 600 Balance 1950 700 650 600 - Objective General Appearance: positive: No acute distress, Alert Eyes Bilateral: positive: Normal inspection, PERRL, EOMI ENT: positive: ENT inspection nml, Pharynx nml, No signs of dehydration Neck: positive: Nml inspection, Trachea midline Respiratory: positive: Chest non-tender, No respiratory distress, Breath sounds nml Cardiovascular: positive: Regular rate & rhythm, No murmur, No gallop Peripheral Pulses: 2+ Dorsalis pedis (R), 2+ Dorsalis pedis (L) Abdomen: positive: Non-tender, No organomegaly, Nml bowel sounds, No distention Skin: positive: Warm, Dry Neurologic/Psychiatric: positive: Other (unable to assess orientation currently as patient is sleeping) - Lab Results Fish Bones: 12/26/18 05:11 12/26/18 05:11 Sepsis Event Note (H) - Evaluation Current Stage of Sepsis: Ruled out Assessment/Plan - Problem List (1) Femoral neck fracture Impression: s/p closed reduction and multiple cannulated screw fixation of right hip fracture with Dr. Valeriano Aguilar on 12/22/2018. Plan: continue pain control continue PT/OT -- WBAT on right. DVT prophylaxis with enoxaparin for 2 weeks after surgery per ortho follow up in orthopedic clinic in 2 weeks for alexandra out and new XR she is stable for discharge. [employer] SAL[employer]ERSON is working on disposition Qualifiers: Encounter type: initial encounter Fracture type: closed Laterality: right Qualified Code(s): S72.001A - Fracture of unspecified part of neck of right femur, initial encounter for closed fracture (2) Dementia Impression: pt has hx of advanced dementia. Plan: continue supportive care 1:1 feeding aspiration precautions (3) HTN (hypertension) Impression: stable Plan: continue home medications (4) Hyperlipidemia Impression: stable Plan: continue home lipitor (5) Anxiety Impression: stable Plan: continue home medications (6) Acute anemia with iron deficiency anemia: Impression: H&H stable 8.6. No signs or symptoms of bleeding. Plan: continue ferrous gluconate f/u CBC tomorrow (7) Left basilar airspace disease, resolved Impression: pt had elevated temperature to 37.6C, was diaphoretic, reduced WBC on 12/22/2018. UA was negative. CXR with minor left basilar atelectasis or scarring. Blood cultures have been no growth to date. She was started on ceftriaxone 12/22/2018. She has remained afebrile without an elevated WBC. Ceftriaxone was discontinued on 12/24/2018 Plan: monitor temperature (8) Hypokalemia, resolved
[2018-12-28] MEDS: QUEtiapine 25 MG TABLET PO SCH (20:19)
[2018-12-28] MEDS: MELATONIN 5 MG PO SCH (20:19)
[2018-12-28] MEDS: LATANOPROST 0.005% OPHTH DROPS EACHEYE SCH ×2 (20:19→21:47)
[2018-12-29] MEDS: SODIUM CHLORIDE FLUSH 0.9% 10 ML SYRINGE IVP SCH ×3 (00:47→16:43)
[2018-12-29 06:28] LABS: BASOPHILS % (AUTO) 0.7 %; EOSINOPHILS # (AUTO) 0.1 10^3/uL (0.0-0.7); EOSINOPHILS % (AUTO) 2.9 %; HGB - HEMOGLOBIN 8.7 g/dL (12.0-16.0); LYMPHOCYTES # (AUTO) 1.5 10^3/uL (1.5-3.5); LYMPHOCYTES % (AUTO) 37.6 %; MEAN CORPUSCULAR HEMOGLOBIN 29.4 pg (27.0-31.0); MONOCYTES # (AUTO) 0.5 10^3/uL (0.0-1.0); MONOCYTES % (AUTO) 12.9 %; NEUTROPHILS # (AUTO) 1.8 10^3/uL (1.5-6.6); NEUTROPHILS % (AUTO) 45.9 %; PLT - PLATELET COUNT 209 10^3/uL (130-450); RED BLOOD COUNT 2.98 10^6/uL (4.20-5.40); RED CELL DISTRIBUTION WIDTH 14.6 % (12.0-15.0); WHITE BLOOD COUNT 3.9 x10^3/uL (4.8-10.8)
[2018-12-29 06:29] LABS: CALCIUM 8.8 mg/dL (8.5-10.3); CREATININE 0.9 mg/dL (0.4-1.0)
[2018-12-29] MEDS: ENOXAPARIN 40 MG/0.4 ML SYRINGE SUBQ SCH (09:43)
[2018-12-29] MEDS: CHOLECALCIFEROL 400 UNIT TABLET PO SCH (09:44)
[2018-12-29] MEDS: ESCITALOPRAM 10 MG TABLET PO SCH (09:44)
[2018-12-29] MEDS: ATORVASTATIN 40 MG TABLET PO SCH (09:44)
[2018-12-29] MEDS: FERROUS GLUCONATE 324 MG TABLET PO SCH (09:44)
[2018-12-29] MEDS: CALCIUM CITRATE 250 MG TABLET PO SCH (09:44)
[2018-12-29] MEDS: MULTIVITAMIN W/MINERALS TABLET PO SCH (09:44)
[2018-12-29] MEDS: ASPIRIN EC 81 MG TABLET PO SCH (09:44)
[2018-12-29] MEDS: SENNA 8.6 MG TABLET PO SCH (09:45)
[2018-12-29] MEDS: DOCUSATE SODIUM 250 MG CAPSULE PO SCH (09:45)
[2018-12-29] MEDS: POLYETHYLENE GLYCOL 3350 17 GM PACKET PO SCH (09:45)
[2018-12-29] MEDS: FAMOTIDINE 20 MG TABLET PO SCH ×2 (09:46→20:08)
--- NOTE | 2018-12-29 15:06 | PROVIDER PROGRESS NOTE ---
Subjective - Prog Note Date Prog Note Date: 12/29/18 Prog Note Time: 07:45 - Subjective Subjective: Patient sitting up in the chair VSS Awaiting placement at [facility] Current Medications - Current Medications Current Medications: Acetaminophen (Tylenol) 650 mg PO Q4HR PRN PRN Reason: Pain 1 to 4 Last Admin: 12/27/18 06:03 Dose: 650 mg Acetaminophen (Tylenol) 650 - 975 mg PO Q4HR PRN PRN Reason: PAIN Aspirin (Ecotrin) 81 mg PO DAILY [facility] Last Admin: 12/29/18 09:44 Dose: 81 mg Atorvastatin Calcium (Lipitor) 40 mg PO DAILY [facility] Last Admin: 12/29/18 09:44 Dose: 40 mg Calcium Citrate () 250 mg PO DAILY [facility] Last Admin: 12/29/18 09:44 Dose: 250 mg Cholecalciferol (Vitamin D3) 800 unit PO DAILY [facility] Last Admin: 12/29/18 09:44 Dose: 800 unit Docusate Sodium (Colace 250mg Capsule) 250 - 500 mg PO DAILY [facility] Last Admin: 12/29/18 09:45 Dose: Not Given Enoxaparin Sodium (Lovenox) 40 mg SUBQ DAILY [facility] Last Admin: 12/29/18 09:43 Dose: 40 mg Escitalopram Oxalate (Lexapro) 20 mg PO DAILY [facility] Last Admin: 12/29/18 09:44 Dose: 20 mg Famotidine (Pepcid) 20 mg PO BID [facility] Last Admin: 12/29/18 09:46 Dose: 20 mg Ferrous Gluconate (Fergon) 324 mg PO DAILYWM [facility] Last Admin: 12/29/18 09:44 Dose: 324 mg Acetaminophen (Ofirmev) 100 mls @ 400 mls/hr IV Q6HR PRN PRN Reason: PAIN Last Infusion: 12/23/18 16:39 Dose: Infused Latanoprost (Xalatan Ophth Drops) 1 drops EACHEYE QPM [facility] Last Admin: 12/28/18 21:47 Dose: Not Given Multivitamins/Minerals (Theragran M) 1 tab PO DAILYWM [facility] Last Admin: 12/29/18 09:44 Dose: 1 tab Ondansetron HCl (Zofran Inj) 4 mg IVP Q6HR PRN PRN Reason: Nausea / Vomiting Oxycodone HCl (Roxicodone) 5 mg PO Q4HR PRN PRN Reason: PAIN Last Admin: 12/28/18 20:30 Dose: 5 mg Patient Own Med ( Melatonin 5 Mg Tablet) 1 each PO QPM [facility] Last Admin: 12/28/18 20:19 Dose: Not Given Polyethylene Glycol (Miralax) 17 gm PO DAILY [facility] Last Admin: 12/29/18 09:45 Dose: Not Given Prochlorperazine Edisylate (Compazine Inj) 10 mg IVP Q6HR PRN PRN Reason: Nausea / Vomiting Quetiapine Fumarate (Seroquel) 25 mg PO QPM [facility] Last Admin: 12/28/18 20:19 Dose: 25 mg Senna (Senokot) 8.6 - 17.2 mg PO DAILY [facility] Last Admin: 12/29/18 09:45 Dose: Not Given Sodium Chloride (Normal Saline Flush 0.9%) 10 ml IVP 0100,0900,1700 [facility] Last Admin: 12/29/18 09:45 Dose: 10 ml Sodium Chloride (Normal Saline Flush 0.9%) 10 ml IVP PRN PRN PRN Reason: NEEDED PER PROVIDER ORDERS Objective - Vital Signs/Intake & Output Reviewed Vital Signs: Yes Vital Signs: Vital Signs x48h Temp Pulse Resp BP Pulse Ox 12/29/18 08:00 37.3 C 80 22 112/65 98 Intake & Output: Intake & Output 12/26/18 12/27/18 12/28/18 12/29/18 23:59 23:59 23:59 23:59 Intake Total 700 650 750 730 Balance 700 650 750 730 - Objective General Appearance: positive: No acute distress, Alert (sitting up in chair) Eyes Bilateral: positive: Normal inspection, PERRL, EOMI ENT: positive: ENT inspection nml, Pharynx nml, No signs of dehydration Neck: positive: Nml inspection, Trachea midline Respiratory: positive: Chest non-tender, No respiratory distress, Breath sounds nml Cardiovascular: positive: Regular rate & rhythm, No murmur, No gallop Peripheral Pulses: 2+ Dorsalis pedis (R), 2+ Dorsalis pedis (L) Abdomen: positive: Non-tender, No organomegaly, Nml bowel sounds, No distention Skin: positive: Warm, Dry Extremities: positive: Other (right hip dressing with small spot of dried sanguineous drainage present) Neurologic/Psychiatric: positive: Depressed mood/affect, Other (alert to self.) - Lab Results Fish Bones: 12/29/18 05:37 12/29/18 06:00 Other Labs: Lab Results x24hrs 12/29/18 12/29/18 Range/Units 06:00 05:37 WBC 3.9 L (4.8-10.8) x10^3/uL RBC 2.98 L (4.20-5.40) 10^6/uL Hgb 8.7 L (12.0-16.0) g/dL Hct 26.5 L (37.0-47.0) % MCV 89.0 (81.0-99.0) fL MCH 29.4 (27.0-31.0) pg MCHC 33.0 (32.0-36.0) g/dL RDW 14.6 (12.0-15.0) % Plt Count 209 (130-450) 10^3/uL MPV 8.0 (7.9-10.8) fL Neut # (Auto) 1.8 (1.5-6.6) 10^3/uL Lymph # (Auto) 1.5 (1.5-3.5) 10^3/uL [place] # (Auto) 0.5 (0.0-1.0) 10^3/uL Eos # (Auto) 0.1 (0.0-0.7) 10^3/uL Baso # (Auto) 0.0 (0.0-0.1) 10^3/uL Absolute Nucleated RBC 0.00 x10^3/uL Nucleated RBC % 0.1 /100WBC Sodium 136 (135-145) mmol/L Potassium 4.2 (3.5-5.0) mmol/L Chloride 103 (101-111) mmol/L Carbon Dioxide 28 (21-32) mmol/L Anion Gap 5.0 L (6-13) BUN 13 (6-20) mg/dL Creatinine 0.9 (0.4-1.0) mg/dL Estimated GFR (MDRD) 74 L (>89) Glucose 98 (70-100) mg/dL Calcium 8.8 (8.5-10.3) mg/dL Sepsis Event Note (H) - Evaluation Current Stage of Sepsis: Ruled out Assessment/Plan - Problem List (1) Femoral neck fracture Impression: s/p closed reduction and multiple cannulated screw fixation of right hip fracture with Dr. Valeriano Aguilar on 12/22/2018. Ortho has signed off. Plan: continue pain control continue PT/OT -- WBAT on right. DVT prophylaxis with enoxaparin for 2 weeks after surgery per ortho follow up in orthopedic clinic in 2 weeks from 12/22/2018 for alexandra out and new XR she is stable for discharge. [employer] is working on disposition, likely to SNF tomorrow Qualifiers: Encounter type: initial encounter Fracture type: closed Laterality: right Qualified Code(s): S72.001A - Fracture of unspecified part of neck of right femur, initial encounter for closed fracture (2) Dementia Impression: pt has hx of advanced dementia. Plan: continue supportive care 1:1 feeding aspiration precautions (3) HTN (hypertension) Impression: stable Plan: continue home medications (4) Hyperlipidemia Impression: stable Plan: continue home lipitor (5) Anxiety Impression: stable Plan: continue home medications (6) Acute anemia with iron deficiency anemia: Impression: H&H stable 8.7. No signs or symptoms of bleeding. Plan: continue ferrous gluconate (7) Left basilar airspace disease, resolved Impression: pt had elevated temperature to 37.6C, was diaphoretic, reduced WBC on 12/22/2018. UA was negative. CXR with minor left basilar atelectasis or scarring. Blood cultures have been no growth to date. She was started on ceftriaxone 12/22/2018. She has remained afebrile without an elevated WBC. Ceftriaxone was discontinued on 12/24/2018 Plan: monitor temperature (8) Hypokalemia, resolved
[2018-12-29] MEDS: MELATONIN 5 MG PO SCH (20:04)
[2018-12-29] MEDS: QUEtiapine 25 MG TABLET PO SCH (20:08)
[2018-12-29] MEDS: LATANOPROST 0.005% OPHTH DROPS EACHEYE SCH (20:08)
[2018-12-30] MEDS: SODIUM CHLORIDE FLUSH 0.9% 10 ML SYRINGE IVP SCH ×2 (01:04→08:26)
[2018-12-30 07:29] VITALS: BP 121/73
[2018-12-30] MEDS: ENOXAPARIN 40 MG/0.4 ML SYRINGE SUBQ SCH (08:26)
[2018-12-30] MEDS: CHOLECALCIFEROL 400 UNIT TABLET PO SCH (08:27)
[2018-12-30] MEDS: FAMOTIDINE 20 MG TABLET PO SCH (08:27)
[2018-12-30] MEDS: ATORVASTATIN 40 MG TABLET PO SCH (08:27)
[2018-12-30] MEDS: ESCITALOPRAM 10 MG TABLET PO SCH (08:27)
[2018-12-30] MEDS: DOCUSATE SODIUM 250 MG CAPSULE PO SCH (08:27)
[2018-12-30] MEDS: CALCIUM CITRATE 250 MG TABLET PO SCH (08:27)
[2018-12-30] MEDS: MULTIVITAMIN W/MINERALS TABLET PO SCH (08:27)
[2018-12-30] MEDS: SENNA 8.6 MG TABLET PO SCH (08:27)
[2018-12-30] MEDS: POLYETHYLENE GLYCOL 3350 17 GM PACKET PO SCH (08:27)
[2018-12-30] MEDS: ASPIRIN EC 81 MG TABLET PO SCH (08:27)
[2018-12-30] MEDS: FERROUS GLUCONATE 324 MG TABLET PO SCH (08:27)
--- NOTE | 2018-12-30 11:23 | Discharge Plan ---
"Discharge Plan for SNF / [facility] - Discharge Plan And Transition Orders Disposition: 03 SNF DC/Xfer Condition: Stable Allergies and Adverse Reactions: Allergies Allergy/AdvReac Type Severity Reaction Status Date / Time Sulfa (Sulfonamide Allergy Unknown Verified 06/26/18 16:02 Antibiotics) - SNF / [facility] Transition Orders Admit to (Facility): [facility] Discharge Diagnosis: Right hip fracture Medicare Certification Statement: I certify that [facility] care is medically necessary on a continuing basis for any of the conditions for which she/he is receiving care during hospitalization. Notify PCP of admission and forward orders to primary provider for signature. Weight on admission and: Monthly Other Notification Orders: Call PCP immediately if patient develops dyspnea, chest pain/tightness or edema. House Bowel Program: Yes Additional Bowel Program Orders: If no BM after 2 days, nurse may give M.O.M. 30ml PO PRN and/or ducolax Supp 1 IN and/or DEE 250mg P.O., and/or senna 1-2 tabs PO. On day 3 nurse may give repeat above order until residents constipation is resolved. Annual Influenza Vaccine (between Jun 26 and January 23): Yes Two-step PPD per [facility] [id number] or approved exception documents: Yes Treatments & Other Orders: Change right hip dressing as needed. Place dry gauze over incision and secure with tape. Lab Tests or X-ray Orders: CBC and BMP 01/02/2019 Orthopedic Orders: WBAT right leg. Medication Orders: PLEASE REFER TO THE DISCHARGE MEDICATION LIST. Insulin Orders?: No - Medications New Prescriptions: Calcium Carbonate/Vitamin D3 [Calcium 500 mg-Vit D3 600 Unit] 1 each PO BID 30 Days #60 tablet Ferrous Gluconate 240 mg PO DAILYWM 30 Days #30 tablet - Diet Texture: [facility] soft Liquids: Thin - Therapies | Activity Therapy: Evaluation | Treat if indicated: PT, OT Rehabilitation Potential: Maximize functional status Activity: Wt Bearing as Tolerated Weight Bearing: Full Weight Assistance Devices: Walker Follow Up: Follow-up [facility] in 2 weeks from 12/22/2018 -- to have alexandra removed and follow-up xray completed"
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
== END 2018-12-30 14:20 | DRG 481 ==
LOC: EDUNIT# → ED 12:18 → MS3 16:32 → MS2 12-25 12:45
PROVIDERS: ADMIT Nurse Practitioner Gerontology; ATTEND Nurse Practitioner
PROC: 0QS634Z Reposition Right Upper Femur with Internal Fixation Device, Percutaneous Approach (ICD-10-PCS; principal; 2018-12-22 13:00)
DX: S72.001A Fracture of unspecified part of neck of right femur, initial encounter for closed fracture (principal); S72.011A Unspecified intracapsular fracture of right femur, initial encounter for closed fracture; J98.11 Atelectasis; F03.90 Unspecified dementia, unspecified severity, without behavioral disturbance, psychotic disturbance, mood disturbance, and anxiety; M54.5 Low back pain; E87.6 Hypokalemia; D50.9 Iron deficiency anemia, unspecified; I10 Essential (primary) hypertension; E78.5 Hyperlipidemia, unspecified; F41.9 Anxiety disorder, unspecified; M10.9 Gout, unspecified; W01.0XXA Fall on same level from slipping, tripping and stumbling without subsequent striking against object, initial encounter; Y92.129 Unspecified place in nursing home as the place of occurrence of the external cause; M51.37 Other intervertebral disc degeneration, lumbosacral region; M47.817 Spondylosis without myelopathy or radiculopathy, lumbosacral region; Z79.82 Long term (current) use of aspirin
CPT/HCPCS: 36415; 71045; 72131; 72192; 73501; 80048; 80053; 80061; 81003; 82607; 82652; 82728; 83540; 83615; 83690; 83721; 83735; 84466; 85025; 85027; 85044; 85610; 85730; 87040; 93005; 97116; 97161; 97165; 97530; 97535; 99283; 99285; A9270; C1713; J0131; J0690; J1650; J7120; 81001; 87086; 99284